=== PATIENT | female | born 1995 ===

== ENCOUNTER 2018-11-10 10:28 | Emergency (ER) | payer BC, OTHER ==
[~2018-11-10] VITALS: Ht 160 cm; Wt 81.6 kg
[~2018-11-10 10:28] MED LIST: ACHD5005 PO; CYCL10TA9 PO
--- NOTE | 2018-11-10 11:49 | ED Abdominal Pain ---
General Chief Complaint: -Female Stated Complaint: VAGINAL BLEEDING;CLOTS; Nursing Triage Note: PT REPORTS VAGINAL BLEEDING WITH CLOT THAT STARTED THIS AM. PT REPORTS BLEEDING IS ONLY PRESENT WHEN SHE WIPES AFTER URINATION. CLINIC ADVISED SHE COME TO THE ER TO GET CHECKED OUT. PT IS UNSURE HOW FAR ALONG SHE IS, APPOINTMENT IS NEXT WEEK. Sepsis Screen: No Definite Risk Source of Information: Patient Exam Limitations: No Limitations History of Present Illness Date Seen by Provider: Nov 10, 2018 Time Seen by Provider: 11:47 Initial Comments To ER with reports of vaginal bleeding. She noticed a small amount of vaginal bleeding when wiping this morning. She is but unsure how far along. She states that she has an appointment with Dr. MEYERS tomorrow. This is her first . She denies any abdominal cramping or pain. She has a [place] blood type card with her showing her to be O+. Timing/Duration: 12-24 Hours Radiation: No Radiation Activities at Onset: None Associated Symptoms: Denies Symptoms Allergies and Home Medications Allergies Coded Allergies: No Known Drug Allergies (Unverified , 08/15/16) Home Medications Cyclobenzaprine HCl 10 Mg Tablet, 10 MG PO Q8H PRN for PAIN Prescribed by: YOLANDE LEDEZMA on 08/15/161819 Hydrocodone Bit/Acetaminophen 1 Each Tablet, 1 EACH PO Q4H PRN for PAIN Prescribed by: YOLANDE LEDEZMA on 08/15/161819 Patient Home Medication List Home Medication List Reviewed: Yes Review of Systems Review of Systems Constitutional: see HPI EENTM: No Symptoms Reported Respiratory: No Symptoms Reported Cardiovascular: No Symptoms Reported Gastrointestinal: See HPI; Denies Abdominal Pain Genitourinary: No Symptoms Reported Musculoskeletal: no symptoms reported Skin: no symptoms reported Psychiatric/Neurological: No Symptoms Reported Endocrine: No Symptoms Reported Hematologic/Lymphatic: No Symptoms Reported Past Scjuelw-Tbmvec-Kjaigj Hx Patient Social History Alcohol Use: Denies Use Recreational Drug Use: No Smoking Status: Never a Smoker Recent Foreign Travel: No Contact w/Someone Who Travel: No Recent Infectious Disease Expo: No Recent Hopitalizations: No Seasonal Allergies Seasonal Allergies: No Past Medical History Surgeries: No Respiratory: No Cardiac: No Neurological: No Reproductive Disorders: No Sexually Transmitted Disease: No Genitourinary: No Gastrointestinal: No Musculoskeletal: No Endocrine: No HEENT: No Cancer: No Psychosocial: No Integumentary: No Blood Disorders: No Family Medical History No Pertinent Family Hx Physical Exam Vital Signs Vital Signs - First Documented 11/10/18 10:48 Temp 96.0 Pulse 82 Resp 14 B/P (MAP) 125/74 (91) Pulse Ox 98 Capillary Refill : Less Than 3 Seconds Height/Weight/BMI Height: 5'3.00" Weight: 180lbs. oz. 81.401066rc; 25.06 BMI Method:Stated General Appearance: WD/WN, no apparent distress HEENT: PERRL/EOMI, normal ENT inspection Neck: non-tender, full range of motion Respiratory: no respiratory distress, no accessory muscle use Gastrointestinal: normal bowel sounds, non tender, soft Extremities: normal range of motion, non-tender Neurologic/Psychiatric: alert, normal mood/affect, oriented x 3 Skin: normal color, warm/dry Progress/Results/Core Measures Results/Orders Lab Results Laboratory Tests Test 11/10/18 11:50 Range/Units White Blood Count 10.7 4.3-11.0 10^3/uL Red Blood Count 4.76 4.35-5.85 10^6/uL Hemoglobin 14.6 11.5-16.0 G/DL Hematocrit 42 35-52 % Mean Corpuscular Volume 87 80-99 FL Mean Corpuscular Hemoglobin 31 25-34 PG Mean Corpuscular Hemoglobin Concent 35 32-36 G/DL Red Cell Distribution Width 12.7 10.0-14.5 % Platelet Count 305 130-400 10^3/uL Mean Platelet Volume 8.9 7.4-10.4 FL Neutrophils (%) (Auto) 72 42-75 % Lymphocytes (%) (Auto) 18 12-44 % Monocytes (%) (Auto) 10 0-12 % Eosinophils (%) (Auto) 1 0-10 % Basophils (%) (Auto) 0 0-10 % Neutrophils # (Auto) 7.6 1.8-7.8 X 10^3 Lymphocytes # (Auto) 1.9 1.0-4.0 X 10^3 Monocytes # (Auto) 1.0 0.0-1.0 X 10^3 Eosinophils # (Auto) 0.1 0.0-0.3 10^3/uL Basophils # (Auto) 0.0 0.0-0.1 10^3/uL Sodium Level 139 135-145 MMOL/L Potassium Level 3.9 3.6-5.0 MMOL/L Chloride Level 106 98-107 MMOL/L Carbon Dioxide Level 23 21-32 MMOL/L Anion Gap 10 5-14 MMOL/L Blood Urea Nitrogen 7 7-18 MG/DL Creatinine 0.71 0.60-1.30 MG/DL Estimat Glomerular Filtration Rate > 60 BUN/Creatinine Ratio 10 Glucose Level 84 70-105 MG/DL Calcium Level 9.5 8.5-10.1 MG/DL Corrected Calcium 9.2 8.5-10.1 MG/DL Total Bilirubin 0.5 0.1-1.0 MG/DL Aspartate Amino Transf (AST/SGOT) 19 5-34 U/L Alanine Aminotransferase (ALT/SGPT) 43 0-55 U/L Alkaline Phosphatase 64 40-136 U/L Total Protein 7.7 6.4-8.2 GM/DL Albumin 4.4 3.2-4.5 GM/DL My Orders Orders - KEVIN JOEL APRN Hcg,Quantitative (11/10/18 10:56) Cbc With Automated Diff (11/10/18 10:56) Abo Rh Type (11/10/18 10:56) Comprehensive Metabolic Panel (11/10/18 10:56) Us Ob<14 Wks Sngle W/Transvag (11/10/18 10:56) Vital Signs/I&O 11/10/18 10:48 Temp 96.0 Pulse 82 Resp 14 B/P (MAP) 125/74 (91) Pulse Ox 98 Blood Pressure Mean: 91 Departure Communication (Admissions) Ultrasound shows intrauterine 7 weeks 2 days heart rate 132, no evidence of subchorionic hemorrhage or other abnormality. Impression Primary Impression: Vaginal bleeding affecting early Additional Impression: Subchorionic hematoma in first trimester Qualified Codes: O41.8X10 - Other specified disorders of amniotic fluid and membranes, first trimester, not applicable or unspecified; O46.8X1 - Other antepartum hemorrhage, first trimester Disposition: 01 HOME, SELF-CARE Condition: Stable Departure-Patient Inst. Decision time for Depature: 11:48 Referrals: SAHRA MEYERS,LOCAL PHYSICIAN (PCP) Primary Care Physician Patient Instructions: Bleeding With Add. Discharge Instructions: 1. Follow-up with Dr. FENECH tomorrow 2. Return to ER for any concerns 3. Subchorionic hemorrhage All discharge instructions reviewed with patient and/ or family. Voiced understanding. Copy Copies To 1: SAHRA MEYERS PETER J APRN Nov 10, 2018 11:49
[2018-11-10 11:59] LABS: BASOPHILS % (AUTO) 0 % (0-10); EOSINOPHILS # (AUTO) 0.1 10^3/uL (0.0-0.3); EOSINOPHILS % (AUTO) 1 % (0-10); HEMATOCRIT 42 % (35-52); HEMOGLOBIN 14.6 G/DL (11.5-16.0); LYMPHOCYTES # (AUTO) 1.9 X 10^3 (1.0-4.0); LYMPHOCYTES % (AUTO) 18 % (12-44); MEAN CORPUSCULAR HEMOGLOBIN 31 PG (25-34); MEAN CORPUSCULAR HGB CONC 35 G/DL (32-36); MEAN CORPUSCULAR VOLUME 87 FL (80-99); MEAN PLATELET VOLUME 8.9 FL (7.4-10.4); MONOCYTES % (AUTO) 10 % (0-12); NEUTROPHILS # (AUTO) 7.6 X 10^3 (1.8-7.8); NEUTROPHILS % (AUTO) 72 % (42-75); PLATELET COUNT 305 10^3/uL (130-400); RED CELL DISTRIBUTION WIDTH 12.7 % (10.0-14.5); WHITE BLOOD COUNT 10.7 10^3/uL (4.3-11.0)
--- NOTE | 2018-11-10 12:13 | Diagnostic Imaging Report ---
Indication: Vaginal bleeding. There is an intrauterine gestational sac containing a pole. [place]-rump length measurement approximately 12 mm consistent with 7 weeks 3 days gestation. heart rate was recorded at 132 beats per minute. Gestational sac shape is within normal limits. There does appear to be a small subchorionic hemorrhage measuring 15 mm x 7 mm. Adnexa evaluation shows no evidence of mass or free fluid. Ovaries cannot be visualized due to bowel gas. Impression: Single IUP approximately 7 weeks 3 days gestational age with an estimated date of confinement sonographically of 06/26/2019. There is a small subchorionic bleed present. No other abnormalities detected. Dictated by: Dictated on workstation # [id number]
[2018-11-10 12:19] LABS: ALANINE AMINOTRANSFERASE 43 U/L (0-55); ALBUMIN 4.4 GM/DL (3.2-4.5); ALKALINE PHOSPHATASE 64 U/L (40-136); BILIRUBIN,TOTAL 0.5 MG/DL (0.1-1.0); BUN/CREATININE RATIO 10; CALCIUM 9.5 MG/DL (8.5-10.1); CARBON DIOXIDE 23 MMOL/L (21-32); CHLORIDE 106 MMOL/L (98-107); CREATININE SERUM 0.71 MG/DL (0.60-1.30); GFR ESTIMATED > 60; GLUCOSE 84 MG/DL (70-105); POTASSIUM 3.9 MMOL/L (3.6-5.0); SODIUM 139 MMOL/L (135-145); TOTAL PROTEIN 7.7 GM/DL (6.4-8.2)
[2018-11-10 12:32] VITALS: BP 125/74
== END 2018-11-10 12:45 | disposition home or self-care (01) ==
LOC: EDUNIT# 10:28 → ER 10:29
DX: O20.9 Hemorrhage in early pregnancy, unspecified (principal); O41.8X10 Other specified disorders of amniotic fluid and membranes, first trimester, not applicable or unspecified; Z3A.01 Less than 8 weeks gestation of pregnancy
CPT/HCPCS: 36415; 76801; 76817; 80053; 84702; 85025; 86900; 86901

== ENCOUNTER → 2019-02-12 | Outpatient (CLI) | payer BC ==
--- NOTE | 2019-02-12 12:15 | Diagnostic Imaging Report ---
INDICATION: survey. TECHNIQUE: Multiple real-time grayscale images were obtained over the gravid uterus. COMPARISON: 11/10/2018. FINDINGS: There is a single live fetus in a cephalic presentation. heart rate was recorded at 135 beats per minute. Placenta is anterior. Amniotic fluid volume is normal. Cervical length is 4.3 cm. kidneys, bladder and stomach are unremarkable. The brain is unremarkable. There is a four-chamber heart. There is a three-vessel cord with normal insertion. The spine is unremarkable. Biometrical measurements are as follows: Biparietal 5.32 cm, age 22 weeks 2 days. Head circumference 18.17 cm, age 20 weeks 5 days. Abdominal circumference 16.64 cm, age 21 weeks 5 days. Femur length 3.51 cm, age 21 weeks 1 days. Sonographic estimate age: 21 weeks 4 days. Sonographic estimated date of delivery: 06/21/2019. Estimated Weight: 418 gm (+/- 61 gm). LMP percentile: 72%. heart rate: 135 beats per minute. number: 1 of 1. IMPRESSION: Single live IUP 21 weeks 4 days gestational age showing normal interval growth when compared to prior examination. No complicating features are seen. Dictated by: Dictated on workstation # [id number]
== END ==
LOC: RAD 10:49
PROVIDERS: ATTEND Obstetrics & Gynecology
DX: Z36.89 Encounter for other specified antenatal screening (principal); Z3A.21 21 weeks gestation of pregnancy
CPT/HCPCS: 76805

== ENCOUNTER 2019-06-27 13:26 | Outpatient (CLI) | payer BC ==
[~2019-06-27] VITALS: Ht 160 cm; Wt 91.5 kg
--- NOTE | 2019-06-27 13:24 | NUR ---
CINDY MORA presented to unit via ambulation from home, accompanied by S.O., with c/o LEAKING FLUID. CINDY MORA weighed, gowned, voided, and to bed. EFHM and TOCO applied, VS taken. CINDY MORA oriented to bed controls, call light, TV, heat, and A/C controls.
[~2019-06-27 13:26] MED LIST changes: +PREN-102 PO
[2019-06-27 14:03] LABS: BILIRUBIN,URINE NEGATIVE (NEGATIVE); CLARITY,URINE CLEAR; COLOR,URINE YELLOW; GLUCOSE, URINE (UA) NEGATIVE (NEGATIVE); KETONES,URINE 1+ (NEGATIVE); LEUKOCYTE ESTERASE ,URINE 3+ (NEGATIVE); NITRITE,URINE NEGATIVE (NEGATIVE); PH,URINE 7 (5-9); PROTEIN,URINE 2+ (NEGATIVE); UROBILINOGEN,URINE 4 MG/DL (NORMAL)
[2019-06-27 14:15] LABS: BACTERIA,URINE MODERATE /HPF
--- NOTE | 2019-06-27 14:22 | NUR ---
Dr. Waldron called and notified of pt arrival, c/o gush of fluid on toilet at home, occasional cramping. Notified pt is G1, due 06/26 (40.1weeks). Negative nitrazine, SVE, FHR, ctx pattern, UA, VS reported to Dr. Waldron. Orders to call in Keflex 500mg QID x 7 Days and D/C pt to home.
[2019-06-27] MEDS ORDERED: CEPH-507 PO (14:28)
--- NOTE | 2019-06-27 14:30 | NUR ---
Keflex 500mg BID x7 days called to [facility]
--- NOTE | 2019-06-27 14:40 | NUR ---
Discharge instructions explained to pt with copy provided to pt. Pt notified of script at [facility]. Pt verbalizes understanding of instructions, denies questions or concerns at this time. Pt ambulates off unit accompanied by S.O. to private vehicle with all personal belongings. No s/s of distress noted.
--- NOTE | 2019-06-29 08:22 | Physician Query-Final Dx ---
TOMMY HALL 06/29/19 0822: Clinic Account Progress/Dx Physician Query: Please give diagnosis Please include # weeks gestation Date of Service Jun 27, 2019 at 13:26 SAHRA MEYERS DO 06/30/19 0808: Clinic Account Progress/Dx DIAGNOSIS: Diagnosis 40 week IUP Vaginal discharge UTI TOMMY HALL Jun 29, 2019 08:22 SAHRA MEYERS DO Jun 30, 2019 08:08
== END 2019-06-27 14:40 | disposition home or self-care (01) ==
LOC: LDRP 13:26 → WSo 13:26
PROVIDERS: ATTEND Obstetrics & Gynecology
DX: O42.90 Premature rupture of membranes, unspecified as to length of time between rupture and onset of labor, unspecified weeks of gestation (principal); O26.899 Other specified pregnancy related conditions, unspecified trimester; Z3A.00 Weeks of gestation of pregnancy not specified
CPT/HCPCS: 81000; 87088; 99214

== ENCOUNTER 2019-07-01 19:11 | Inpatient (IN) | payer BC ==
[~2019-07-01] VITALS: Ht 160 cm; Wt 90.5 kg
--- NOTE | 2019-07-01 19:04 | NUR ---
CINDY MORA , [facility] accompanied by SO, with c/o INDUCTION. CINDY MORA weighed, gowned, voided, and to bed. EFHM and TOCO applied, VS taken. CINDY MORA oriented to bed controls, call light, TV, heat, and A/C controls. Pt denies bleeding or leaking of fluids. Confirms movement. Induction plan reviewed.
[~2019-07-01 19:11] MED LIST changes: +CEPH-507 PO
[2019-07-01 19:30] VITALS: BP 112/71
[2019-07-01] MEDS ORDERED: MINERAL OIL CONCENTRATE 99.9% 15 ML UDC TOP PRN (20:15)
[2019-07-01] MEDS: D5 LR IV SOLUTION 1,000 ML IV SCH (20:23)
[2019-07-01 20:30] VITALS: BP 104/71
[2019-07-01] MEDS ORDERED: MISOPROSTOL 100 MCG (CYTOTEC) TAB ONE (20:32)
[2019-07-01] MEDS: MISOPROSTOL 100 MCG (CYTOTEC) TAB PO SCH (20:32)
[2019-07-01 20:34] LABS: BASOPHILS % (AUTO) 0 % (0-10); EOSINOPHILS # (AUTO) 0.1 10^3/uL (0.0-0.3); EOSINOPHILS % (AUTO) 1 % (0-10); HEMATOCRIT 38 % (35-52); HEMOGLOBIN 12.6 G/DL (11.5-16.0); LYMPHOCYTES # (AUTO) 1.8 X 10^3 (1.0-4.0); LYMPHOCYTES % (AUTO) 19 % (12-44); MEAN CORPUSCULAR HEMOGLOBIN 28 PG (25-34); MEAN CORPUSCULAR HGB CONC 33 G/DL (32-36); MEAN CORPUSCULAR VOLUME 85 FL (80-99); MEAN PLATELET VOLUME 9.6 FL (7.4-10.4); MONOCYTES # (AUTO) 0.8 X 10^3 (0.0-1.0); MONOCYTES % (AUTO) 8 % (0-12); NEUTROPHILS % (AUTO) 73 % (42-75); PLATELET COUNT 301 10^3/uL (130-400); RED CELL DISTRIBUTION WIDTH 14.7 % (10.0-14.5); WHITE BLOOD COUNT 9.7 10^3/uL (4.3-11.0)
[2019-07-01 21:30] VITALS: BP 113/70
--- NOTE | 2019-07-01 21:48 | History & Physical-OB ---
OB - Chief Complaint & HPI Date/Time Date of Admission: Date of Admission: Jul 01, 2019 at 19:11 Date seen by a Provider: Jul 01, 2019 Time Seen by a Provider: 21:00 Chief Complaint/History OB-Reason for Admission/Chief: Induction of Labor Hx : 1 Hx Para: 0 Expected Date of Delivery: Jun 26, 2019 Gestational Age in Weeks: 40 Gestational Age in Days: 4 Indication for induction: post dates Admission Nurse Assessment Rev: Yes Allergies and Home Medications Allergies Coded Allergies: No Known Drug Allergies (Unverified , 08/15/16) Home Medications Cephalexin 500 Mg Capsule, 500 MG PO QID Prescribed by: SARATH ADKINS on 06/27/19 1428 Vits #93/Iron Fum/FA 1 Each Tablet, 1 EACH PO DAILY, (Reported) Patient Home Medication List Home Medication List Reviewed: Yes OB - History Hx of Present Care: Yes Ultrasounds: Normal mid trimester US Obstetrical Complications: None Medical Complications: None Delivery History Hx Blood Disorders: No Patient Past Medical History n/a Social History/Family History Sexually Transmitted Disease: No OB - Admission Exam Physical Exam HEENT: NCAT Heart: Rhythm Normal Lungs: Clear Abdomen: Gravid Extremities: Normal Reflexes: Normal Cervical Dilatation: 2cm Effacement: 75% Station: -1 Membranes: Intact Heart Rate: 130's Accelerations: Accelerations Present Decelerations: No Decelerations Short Term Variability: Present Care Home Variability: Average (6-25) Contractions on Admission: 6-10 Minutes Apart Glover Scoring Tool (Modified) Dilation (cm): 1-2cm (1) Effacement (%): 51-79% (2) Descent/Station: -1,0 (2) Cervix Consistency: Soft (2) Cervix Position: Anterior (2) Subtract 1 point for: Nulliparity (-1) Glover Score: 8 Labs Laboratory Tests Test 07/01/19 20:15 Range/Units White Blood Count 9.7 4.3-11.0 10^3/uL Red Blood Count 4.48 4.35-5.85 10^6/uL Hemoglobin 12.6 11.5-16.0 G/DL Hematocrit 38 35-52 % Mean Corpuscular Volume 85 80-99 FL Mean Corpuscular Hemoglobin 28 25-34 PG Mean Corpuscular Hemoglobin Concent 33 32-36 G/DL Red Cell Distribution Width 14.7 H 10.0-14.5 % Platelet Count 301 130-400 10^3/uL Mean Platelet Volume 9.6 7.4-10.4 FL Neutrophils (%) (Auto) 73 42-75 % Lymphocytes (%) (Auto) 19 12-44 % Monocytes (%) (Auto) 8 0-12 % Eosinophils (%) (Auto) 1 0-10 % Basophils (%) (Auto) 0 0-10 % Neutrophils # (Auto) 7.0 1.8-7.8 X 10^3 Lymphocytes # (Auto) 1.8 1.0-4.0 X 10^3 Monocytes # (Auto) 0.8 0.0-1.0 X 10^3 Eosinophils # (Auto) 0.1 0.0-0.3 10^3/uL Basophils # (Auto) 0.0 0.0-0.1 10^3/uL OB - Assessment/Plan/Diagnosis Assessment Assessment: induction of labor Admission Dx 23yo @ 40.4 Postdates induction of labor GBS neg Admission Status: Inpatient Order (span 2 midnights) Reason for Inpatient Admission: induction of labor at term Plan Plan: Induction Induction Method: per Misoprostol Protocol SAHRA MEYERS DO Jul 01, 2019 21:48
[2019-07-01] MEDS ORDERED: CATHETER FLUSH 10 ML SYR IV SCH (22:00)
[2019-07-01 22:30] VITALS: BP 109/76
[2019-07-02] VITALS (64 sets, daily range): BP systolic 87–130; BP diastolic 52–81
[2019-07-02] MEDS: MISOPROSTOL 100 MCG (CYTOTEC) TAB PO SCH (00:25)
[2019-07-02] MEDS: D5 LR IV SOLUTION 1,000 ML IV SCH ×2 (02:51→10:47)
--- NOTE | 2019-07-02 05:50 | NUR ---
Dr. Waldron called and given update on pt status at this time. orders cytotec to be started now.
[2019-07-02] MEDS ORDERED: OXYTOCIN/NORMAL SALINE 500 ML IV SCH ×2 (05:58→20:15)
[2019-07-02] MEDS ORDERED: OXYTOCIN/NORMAL SALINE 500 ML IV ONE (06:02)
[2019-07-02] MEDS ORDERED: SUFENTA 0.6MCG/ML BUPIVA 0.125 100 ML ONE (07:57)
--- NOTE | 2019-07-02 07:58 | NUR ---
Anesthesia called and notified of epidural request.
[2019-07-02] MEDS ORDERED: BUPIVACAINE 0.25% 30 ML (SENSORCAINE) VIAL ONE ×2 (08:37→19:12)
[2019-07-02] MEDS ORDERED: fentaNYL INJECTION 100 MCG/2 ML AMP ONE ×2 (08:38→18:02)
[2019-07-02] MEDS: EPIDURAL (SUFENTA 0.6MCG/ML BUPIVA 0.125%) 100 ML BAG EPI PRN ×2 (09:08→17:14)
[2019-07-02] MEDS ORDERED: ONDANSETRON 4 MG/2 ML (SDV) Z0FRAN ONE ×2 (14:05→19:12)
[2019-07-02] MEDS ORDERED: LACTATED RINGERS 1,000 ML IV ONE ×2 (14:06)
[2019-07-02] MEDS ORDERED: NALOXONE 0.4 MG/ML 1 ML (NARCAN) VIAL IV PRN (14:15)
[2019-07-02] MEDS ORDERED: ONDANSETRON 4 MG/2 ML (SDV) Z0FRAN IV PRN (14:15)
[2019-07-02] MEDS ORDERED: LIDOCAINE/EPI 2% 1:200,00 (XYLOCAINE) 10 ML VIAL ONE (16:02)
[2019-07-02] MEDS ORDERED: FAMOTIDINE 20MG/2ML IV (PEPCID) ONE (17:55)
[2019-07-02] MEDS ORDERED: ceFAZolin 2 GM/50 ML NS 50 ML ONE (17:57)
[2019-07-02] MEDS ORDERED: CITRIC ACID/SOB CIT (BICITRA) 30 ML UDC ONE (17:57)
[2019-07-02] MEDS ORDERED: METOCLOPRAMIDE INJ 10 MG/2 ML (REGLAN) ONE (17:57)
[2019-07-02] MEDS ORDERED: LIDOCAINE PF 2% 5 ML (XYLOCAINE) VIAL ONE ×3 (18:02→18:39)
[2019-07-02] MEDS ORDERED: BUPIVACAINE 0.5% 30 ML (SENSORCAINE) VIAL ONE (19:13)
[2019-07-02] MEDS ORDERED: METOCLOPRAMIDE INJ 10 MG/2 ML (REGLAN) IV ONE (19:45)
[2019-07-02] MEDS ORDERED: CITRIC ACID/SOB CIT (BICITRA) 30 ML UDC PO ONE (19:45)
[2019-07-02] MEDS ORDERED: CATHETER FLUSH 10 ML SYR IV PRN (19:45)
[2019-07-02] MEDS ORDERED: FAMOTIDINE 20MG/2ML IV (PEPCID) IV ONE (19:45)
[2019-07-02] MEDS ORDERED: TETANUS,DIPTH,PERTUSS P/F (BOOSTRIX) 0.5 ML VIAL IM SCH (20:15)
[2019-07-02] MEDS ORDERED: MEASLES,MUMPS,RUBELLA 1 EA INJ SC SCH (20:15)
[2019-07-02] MEDS ORDERED: ONDANSETRON 4 MG/2 ML (SDV) Z0FRAN IVP PRN (20:15)
[2019-07-02] MEDS: DOCUSATE SODIUM 100 MG (COLACE) CAP PO SCH (20:40)
[2019-07-02] MEDS: KETOROLAC 30 MG/ML VIAL IV SCH (20:40)
--- NOTE | 2019-07-02 21:15 | NUR ---
Report given to Tennille Ward RN
[2019-07-02] MEDS ORDERED: CATHETER FLUSH 10 ML SYR IV SCH (22:00)
[2019-07-03] MEDS: HYDROcodone/APAP 5 MG/325 MG (LORTAB) TAB PO PRN ×4 (00:25→22:39)
[2019-07-03 00:28] VITALS: BP 86/53
--- NOTE | 2019-07-03 01:30 | OPERATIVE REPORT ---
DATE OF SERVICE: PREOPERATIVE DIAGNOSES: 1. A 23-year-old G1, P0 at 40 weeks and 6 days gestation. 2. Cephalopelvic disproportion. 3. intolerance and second stage of labor. POSTOPERATIVE DIAGNOSES: 1. A 23-year-old G1, P0 at 40 weeks and 6 days gestation. 2. Cephalopelvic disproportion. 3. intolerance and second stage of labor. 4. Persistent occiput posterior. SURGEON: Lino Waldron D.O. ANESTHESIA: Epidural, which was bolused. ESTIMATED BLOOD LOSS: 500 mL. URINE OUTPUT: 50 mL clear and concentrated at the end of procedure. FLUIDS: 1000 mL lactated Ringer solution. FINDINGS: A live male weighing 8 pounds 13 ounces, Apgars of 8 and 9. Grossly normal appearing uterus, bilateral fallopian tubes and ovaries. SPECIMEN SENT: None. INDICATIONS FOR PROCEDURE: This 23-year-old female, who is brought in for induction yesterday evening for cervical ripening. She was found to be 2 cm on admission the following morning, which was this morning. Artificial rupture of membranes was performed and Pitocin augmentation was started to achieve an adequate contraction pattern, which was done so, up to a max dose of 12 milliunits of Pitocin. An epidural was obtained for analgesia, which worked very well. She progressed to complete and 0 station; however, occiput posterior was identified on examination, suspicion for cephalopelvic disproportion was high due to some vulvar swelling. The patient was allowed to labor down for over an hour after a 30 minute trial pushing progressed the infant a little to none. Following the trail to labor down, repeat attempt was made with pushing and there were heart rate decelerations into the 60s and 70s with each maternal push. At that point, I discussed with the patient my concern with risk to the with persistent pushing and an extended second stage labor and the long-term problems include potentially cause for the infant. I discussed with the patient, proceed with primary . Risks of procedure were discussed with the patient in detail. After all of her questions were answered, consent was obtained in the preoperative area and the patient was taken to the operating room. OPERATIVE REPORT IN DETAIL: Once in the operating room, epidural analgesia was bolused and found to be adequate, placed in the supine position with leftward tilt, prepped and draped in normal sterile fashion. A timeout was performed and anesthesia was tested. I then proceeded with making a Pfannenstiel skin incision with a knife and carried down to underlying fascia using Bovie cautery. Fascial incision was extended laterally using Bovie cautery. Superior aspect of the fascial incision was then grasped with Erickson clamps, tented up and dissected off the underlying rectus muscles. The inferior aspect of the fascial incision was then grasped with Erickson clamps, tented up and dissected off the underlying rectus muscles. Rectus muscles were then dissected down the midline using Spaulding scissors, exposing the peritoneum, which I entered bluntly and extended using blunt traction. Lloyd ring retractor was placed in the peritoneal incision, which offers excellent lateral sidewall retraction. I made a low transverse incision to the vesicouterine peritoneum and bluntly dissected off the lower uterine segment, creating a bladder flap. I then proceeded with myotomy until membranes were visualized, which fornix extended the uterine incision laterally and superiorly using bandage scissors. The was found in vertex presentation, right occiput posterior. With gentle elevation of the head, the 's head was elevated up to the incision where gentle fundal pressure, the head was delivered through the incision where the nares and oropharynx were bulb suctioned. Anterior and posterior shoulders were delivered. was then brought to the operative field. Cord was doubly clamped and cut. Infant was handed off to waiting nurses in attendance. Cord blood was collected, 3-vessel cord with intact placenta is delivered spontaneously thereafter. IV Pitocin was initiated to facilitate uterine contraction. Uterine fundus confirmed by manual massage. Uterus was then exteriorized and cleared of all endometrial clots and debris. I then proceeded with closing the uterine incision using 0 Vicryl suture in running locked fashion. Second layer of imbricating 0 Monocryl was placed. Excellent hemostasis was noted after doing this. I then placed the uterus back in the pelvis and copiously irrigated the pelvis using normal saline. Once again, there was no active bleeding noted from any of my dissection planes. I placed Interceed antiadhesive over my low transverse incision and proceeded with closing the peritoneum after removing the Lloyd ring retractor. The peritoneum was reapproximated using 3-0 Vicryl suture in a running fashion. The rectus muscle was reapproximated using 3-0 Vicryl suture in interrupted fashion. The fascia was reapproximated using 0 Vicryl suture in running fashion. Subcutaneous tissue was reapproximated using 3-0 plain interrupted subcutaneous stitch and skin reapproximated using 4-0 Monocryl in a running subcuticular. Dermabond was applied to incision and sterile dressing with adhesive white tape. The patient tolerated the procedure well and sent to recovery area in stable condition. Lap and sponge counts were correct at the end of the procedure. Instrument count was correct as well. Two grams of Ancef given preoperatively for infection prophylaxis. Job ID: [id number] DocumentID: [id number] Dictated Date: 07/02/2019 20:21:53 Cloth Stock Sorter Date: 07/03/2019 01:30:10 Dictated By: DO SHARA GARCIA
[2019-07-03] MEDS: KETOROLAC 30 MG/ML VIAL IV SCH ×2 (03:33→09:16)
[2019-07-03 03:34] VITALS: BP 85/47
--- NOTE | 2019-07-03 03:40 | NUR ---
Pt ambulatory up to bathroom per rn standby assist for first void postop. 500ML light janel urine noted in hat, pericare pads changed per rn assist, pt back to bed standby. Scds applied bilat lower extremity, blankets adjusted, pt denies further needs. see emar and vs int.
[2019-07-03 06:32] LABS: BASOPHILS % (AUTO) 0 % (0-10); EOSINOPHILS # (AUTO) 0.1 10^3/uL (0.0-0.3); EOSINOPHILS % (AUTO) 0 % (0-10); HEMATOCRIT 29 % (35-52); HEMOGLOBIN 9.6 G/DL (11.5-16.0); LYMPHOCYTES # (AUTO) 1.5 X 10^3 (1.0-4.0); LYMPHOCYTES % (AUTO) 9 % (12-44); MEAN CORPUSCULAR HEMOGLOBIN 28 PG (25-34); MEAN CORPUSCULAR HGB CONC 33 G/DL (32-36); MEAN CORPUSCULAR VOLUME 86 FL (80-99); MEAN PLATELET VOLUME 9.5 FL (7.4-10.4); MONOCYTES # (AUTO) 1.4 X 10^3 (0.0-1.0); MONOCYTES % (AUTO) 8 % (0-12); NEUTROPHILS # (AUTO) 13.9 X 10^3 (1.8-7.8); NEUTROPHILS % (AUTO) 82 % (42-75); PLATELET COUNT 245 10^3/uL (130-400); RED CELL DISTRIBUTION WIDTH 14.9 % (10.0-14.5); WHITE BLOOD COUNT 16.9 10^3/uL (4.3-11.0)
--- NOTE | 2019-07-03 08:51 | Anesthesia-Regional Post-Op ---
Regional Patient Condition Mental Status: Alert, Oriented x3 Circulation: Same as Pre-Op Headache: Absent Sensation: Full Recovery Motor Block: Absent Post Op Complications Complications None Follow Up Care/Instructions Patient Instructions None needed. Anesthesia/Patient Condition Patient is doing well, no complaints, stable vital signs, no apparent adverse anesthesia problems. No complications reported per nursing. JANET TIERNEY CRNA Jul 03, 2019 08:51
[2019-07-03 09:00] VITALS: BP 95/57
--- NOTE | 2019-07-03 09:00 | NUR ---
A.M. ASSESSMENT COMPLETED. VSS. CARING FOR IN ROOM. GOOD INTERACTION NOTED.
[2019-07-03] MEDS: DOCUSATE SODIUM 100 MG (COLACE) CAP PO SCH ×2 (09:18→21:57)
--- NOTE | 2019-07-03 09:19 | NUR ---
LORTAB 5/325 2 TABS P.O. FOR C/O INCISIONAL PAIN.
--- NOTE | 2019-07-03 09:20 | NUR ---
DR. MEYERS IN TO SEE PT.
--- NOTE | 2019-07-03 09:38 | Postpartum Progress Note ---
Note Note Day # 1 Subjective: Patient is without complaints. Ambulating, voiding. Tolerating a regular diet without nausea or vomiting. Normal lochia. Pain is well controlled with oral pain medications. Objective: Physical Exam: General - Alert and oriented, no apparent distress Abdomen - Soft, appropriately tender to palpation, non-distended, fundus firm at umbilicus Extremities - no edema, negative Corey's bilaterally Incision: c/d/iu Assessment: POD 1 PLTCS Acute blood loss anemia Plan: Routine care. Encourage breast feeding. Encourage ambulation. Ferrous sulfate supplementation. Plan for discharge tomorrow Vitals - Labs Vital Signs - I&O Vital Signs Date Time Temp Pulse Resp B/P (MAP) Pulse Ox O2 Delivery O2 Flow Rate FiO2 07/03/19 03:34 36.7 77 18 85/47 (60) 98 Room Air 07/03/19 00:28 36.2 85 18 86/53 (64) 98 Room Air 07/02/19 20:40 36.8 79 18 124/78 (93) 99 Room Air 07/02/19 20:10 Room Air 07/02/19 20:10 36.7 20 115/74 (88) 100 Room Air 07/02/19 19:50 37.3 16 118/77 (91) 98 Room Air 07/02/19 19:50 Room Air 07/02/19 19:34 37.1 17 122/77 (92) 99 Room Air 07/02/19 19:34 Room Air 07/02/19 19:15 16 95/79 (84) 99 Room Air 07/02/19 19:15 Room Air 07/02/19 18:09 100 130/66 (87) Non Rebreather 07/02/19 17:55 88 120/67 (84) Non Rebreather 07/02/19 17:40 82 122/63 (82) Non Rebreather 07/02/19 17:25 66 113/78 (90) Room Air 07/02/19 17:10 65 113/74 (87) Room Air 07/02/19 17:00 68 115/76 (89) Room Air 07/02/19 16:45 63 111/71 (84) Room Air 07/02/19 16:30 65 117/58 (77) Room Air 07/02/19 16:08 36.5 20 07/02/19 15:55 74 94/59 (71) Room Air 07/02/19 15:40 58 120/74 (89) Room Air 07/02/19 15:25 68 117/74 (88) Room Air 07/02/19 15:10 55 96/60 (72) Room Air 07/02/19 14:55 63 104/62 (76) Room Air 07/02/19 14:40 63 104/62 (76) Room Air 07/02/19 14:25 36.4 83 16 105/76 (86) Room Air 07/02/19 14:10 78 116/81 (93) Room Air 07/02/19 13:55 81 109/75 (86) Room Air 07/02/19 13:40 77 101/68 (79) Room Air 07/02/19 13:25 67 104/69 (81) Room Air 07/02/19 13:10 82 109/73 (85) Room Air 07/02/19 12:55 67 100/58 (72) Room Air 07/02/19 12:40 65 91/56 (68) Room Air 07/02/19 12:25 67 106/66 (79) Room Air 07/02/19 12:10 61 102/61 (75) Room Air 07/02/19 11:55 63 99/67 (78) Room Air 07/02/19 11:40 60 105/69 (81) Room Air 07/02/19 11:25 57 98/66 (77) Room Air 07/02/19 11:10 56 103/61 (75) Room Air 07/02/19 10:55 53 107/65 (79) Room Air 07/02/19 10:40 57 104/66 (79) Room Air 07/02/19 10:25 93 110/62 (78) Room Air 07/02/19 10:05 35.8 62 18 105/57 (73) Room Air 07/02/19 10:02 57 109/71 (84) Room Air 07/02/19 09:57 69 98/60 (73) Room Air 07/02/19 09:51 62 101/65 (77) Room Air 07/02/19 09:41 63 109/71 (84) Room Air I & O 07/03/19 06:59 Intake Total 2350 ml Output Total 1275 ml Balance 1075 ml Labs Laboratory Tests 07/03/19 05:55: White Blood Count 16.9H, Red Blood Count 3.41L, Hemoglobin 9.6#L, Hematocrit 29L , Mean Corpuscular Volume 86, Mean Corpuscular Hemoglobin 28, Mean Corpuscular Hemoglobin Concent 33, Red Cell Distribution Width 14.9H, Platelet Count 245, Mean Platelet Volume 9.5, Neutrophils (%) (Auto) 82H, Lymphocytes (%) (Auto) 9L, Monocytes (%) (Auto) 8, Eosinophils (%) (Auto) 0, Basophils (%) (Auto) 0, Neutrophils # (Auto) 13.9H, Lymphocytes # (Auto) 1.5, Monocytes # (Auto) 1.4H, Eosinophils # (Auto) 0.1, Basophils # (Auto) 0.0 SAHRA MEYERS DO Jul 03, 2019 09:38
[2019-07-03] MEDS ORDERED: IBUP-844 PO (09:40)
[2019-07-03] MEDS ORDERED: ACHD5005 PO (09:40)
[2019-07-03] MEDS ORDERED: DOCU100C37 PO (09:40)
--- NOTE | 2019-07-03 09:41 | Discharge Inst-Women's Service ---
Discharge Inst-Women's Serv Depart Medication/Instructions New, Converted or Re-Newed RX: RX on Chart Final Diagnosis POD 2 PLTCS Acute blood loss anemia Problems Reviewed?: Yes Consults/Follow Up Additional Follow Up: Yes Orders/Referrals Dr. Meyers in 7-10 days and in 6 weeks Activity Activity: Activity as Tolerated Driving Instructions: No Driving for 1 Week NO SMOKING: NO SMOKING Nothing Inside Vagina: No Douching, No Kendall, No Tampons Diet Discharge Diet: No Restrictions Symptoms to Report to : Bleeding Excessive, Pain Increased, Fever Over 101 Degrees F, Vaginal Bleeding Increase, Questions/Concerns SAHRA MEYERS DO Jul 03, 2019 09:41
--- NOTE | 2019-07-03 11:20 | NUR ---
AMBULATING IN THE HALLWAY WITH S.O. MOVING SLOWLY BUT STEADILY.
--- NOTE | 2019-07-03 12:00 | NUR ---
STATES PAIN DECREASED TO 3/10. VISITING WITH FAMILY. CARING FOR INFANT IN ROOM.
--- NOTE | 2019-07-03 12:06 | NUR ---
PT HAS HAD TDAP AND REFUSED THE FLU SHOT.
[2019-07-03 12:30] VITALS: BP 95/54
--- NOTE | 2019-07-03 14:00 | NUR ---
VISITORS AT BEDSIDE. REMAINS IN ROOM.
[2019-07-03] MEDS: IBUPROFEN 600 MG (MOTRIN) TAB PO SCH ×2 (14:57→21:57)
--- NOTE | 2019-07-03 15:04 | NUR ---
LORTAB 2 TABS P.O. FOR C/O ABD PAIN.
--- NOTE | 2019-07-03 17:00 | NUR ---
PT HAS AMBULATED IN THE [facility] SEVERAL TIMES TODAY. LOTS OF VISITORS.
[2019-07-03 18:00] VITALS: BP 103/66
--- NOTE | 2019-07-03 18:00 | NUR ---
VSS. CONTINUES TO CARE FOR IN ROOM.
[2019-07-03] MEDS ORDERED: IBUPROFEN 600 MG (MOTRIN) TAB PO SCH (20:15)
[2019-07-03 21:56] VITALS: BP 98/58
[2019-07-04 03:36] VITALS: BP 96/56
[2019-07-04] MEDS: IBUPROFEN 600 MG (MOTRIN) TAB PO SCH ×2 (03:36→08:04)
--- NOTE | 2019-07-04 07:45 | NUR ---
Dr Waldron to see patient and orders for discharge received.
--- NOTE | 2019-07-04 07:53 | Postpartum Progress Note ---
Note Note Day # 2 Subjective: Patient is without complaints. Ambulating, voiding. Tolerating a regular diet without nausea or vomiting. Normal lochia. Pain is well controlled with oral pain medications. Objective: Physical Exam: General - Alert and oriented, no apparent distress Abdomen - Soft, appropriately tender to palpation, non-distended, fundus firm at umbilicus Extremities - no edema, negative Corey's bilaterally Incision- c/d/i Assessment: POD 2 PLTCS Acute blood loss anemia Plan: Routine care. Encourage breast feeding. Encourage ambulation. Ferrous sulfate supplementation. Plan for discharge today Vitals - Labs Vital Signs - I&O Vital Signs Date Time Temp Pulse Resp B/P (MAP) Pulse Ox O2 Delivery O2 Flow Rate FiO2 07/04/19 03:36 36.3 78 20 96/56 (69) 97 Room Air 07/03/19 21:56 36.7 77 20 98/58 (71) 98 Room Air 07/03/19 18:00 36.4 76 20 103/66 (78) 98 Room Air 07/03/19 12:30 36.7 69 18 95/54 (68) 98 Room Air 07/03/19 09:00 36.9 82 18 95/57 (70) 98 Room Air I & O 07/04/19 07:00 Intake Total 1200 ml Output Total 800 ml Balance 400 ml SAHRA MEYERS DO Jul 04, 2019 07:53
[2019-07-04 08:02] VITALS: BP 96/58
[2019-07-04] MEDS: DOCUSATE SODIUM 100 MG (COLACE) CAP PO SCH (08:03)
[2019-07-04] MEDS: HYDROcodone/APAP 5 MG/325 MG (LORTAB) TAB PO PRN (08:06)
--- NOTE | 2019-07-04 12:40 | NUR ---
Discharge instructions explained, signed and copy to patient. pt verbalized understanding of instructions and denied questions. prescriptions given to pt and discussed with pt medication, frequeny and use. pt verbalized understanding.
--- NOTE | 2019-07-04 13:20 | NUR ---
Discharged to home. Downstairs in wheelchair per staff accompanied by s.o. To private vehicle with belongings in hand.
== END 2019-07-04 13:20 | disposition home or self-care (01) | DRG 787 ==
LOC: LDRP 19:11
PROVIDERS: ADMIT Obstetrics & Gynecology; ATTEND Obstetrics & Gynecology
PROC: 3E0DXGC Introduction of Other Therapeutic Substance into Mouth and Pharynx, External Approach (ICD-10-PCS; 2019-07-02)
PROC: 10D00Z1 Extraction of Products of Conception, Low, Open Approach (ICD-10-PCS; principal; 2019-07-02 18:18)
DX: O48.0 Post-term pregnancy (principal); O33.9 Maternal care for disproportion, unspecified; O64.0XX0 Obstructed labor due to incomplete rotation of fetal head, not applicable or unspecified; O76 Abnormality in fetal heart rate and rhythm complicating labor and delivery; O62.1 Secondary uterine inertia; O90.81 Anemia of the puerperium; D62 Acute posthemorrhagic anemia; Z37.0 Single live birth; Z3A.40 40 weeks gestation of pregnancy
CPT/HCPCS: 36415; 85025; 86850; 86900; 86901; 88307; 94664

== ENCOUNTER → 2021-10-13 | Outpatient (CLI) | payer BC ==
[~2021-10-13] MED LIST changes: +CYCL10TA25 PO; -CYCL10TA9 PO; +DOCU100C37 PO; +IBUP-844 PO
--- NOTE | 2021-10-13 16:01 | Diagnostic Imaging Report ---
INDICATION: survey. TECHNIQUE: Multiple real-time grayscale images were obtained over the gravid uterus. COMPARISON: None. FINDINGS: There is a single live fetus in a cephalic presentation. heart rate was recorded at 143 bpm. Placenta is posterior. No previa is identified. The amniotic fluid volume is normal. Cervical length is 4.4 cm. survey demonstrates kidneys, bladder and stomach to be unremarkable. brain is unremarkable. There is a four chamber heart. There is a three-vessel cord with normal insertion. spine is unremarkable. Biometrical measurements are as follows: Biparietal 4.95 cm, age 21 weeks 0 days. Head circumference 18.54 cm, age 21 weeks 0 days. Abdominal circumference 15.32 cm, age 20 weeks 4 days. Femur length 3.73 cm, age 22 weeks 0 days. Sonographic estimate age: 21 weeks 1 days. Sonographic estimated date of delivery: 02/22/2022. Estimated Weight: 400 gm (+/- 59 gm). LMP percentile: 95%. heart rate: 143 beats per minute. number: 1 of 1. IMPRESSION: Single live IUP 21 weeks 1 day gestational age. Estimated date of confinement sonographically is 02/22/2022. No complicating features are identified. Dictated by: Dictated on workstation # [id number]
== END ==
LOC: RAD 14:00
PROVIDERS: ATTEND Nurse Practitioner Women's Health
DX: Z34.82 Encounter for supervision of other normal pregnancy, second trimester (principal)
CPT/HCPCS: 76805

== ENCOUNTER 2021-12-04 15:34 | Outpatient (CLI) | payer BC ==
[~2021-12-04] VITALS: Ht 162.6 cm; Wt 89.5 kg
[2021-12-04 16:36] VITALS: BP 107/64
[2021-12-04] MEDS ORDERED: NITR-65 PO (19:10)
[2021-12-04] MEDS ORDERED: ONDA4TAB11 PO (19:10)
--- NOTE | 2021-12-05 08:01 | Physician Query-Final Dx ---
ISABEL,12/05/21 0801: Clinic Account Progress/Dx Physician Query: Please give diagnosis Please include # weeks gestation Date of Service Dec 04, 2021 at 15:34 SAHRA MEYERS DO 12/05/21 1620: Clinic Account Progress/Dx DIAGNOSIS: Diagnosis 28 week IUP, Nausea, fevers, chills, vomitting. ISABEL,SepDec 05, 2021 08:01 SAHRA MEYERS DO Dec 05, 2021 16:20
== END 2021-12-04 16:47 | disposition home or self-care (01) ==
LOC: LDRP 15:34 → WSo 15:34
PROVIDERS: ATTEND Obstetrics & Gynecology
DX: O21.9 Vomiting of pregnancy, unspecified (principal); O26.893 Other specified pregnancy related conditions, third trimester; Z3A.28 28 weeks gestation of pregnancy
CPT/HCPCS: 99212

== ENCOUNTER 2021-12-04 16:51 | Emergency (ER) | payer BC ==
[~2021-12-04] VITALS: Ht 160 cm; Wt 90.7 kg
[2021-12-04] MEDS ORDERED: ONDANSETRON 4 MG (ZOFRAN) ORAL DISSOLVE TAB SL ONE (17:45)
[2021-12-04] MEDS ORDERED: LACTATED RINGERS 1,000 ML IV ONE ×2 (18:15→19:00)
[2021-12-04 18:19] LABS: BASOPHILS % (AUTO) 0 % (0-10); EOSINOPHILS % (AUTO) 0 % (0-10); HEMATOCRIT 38 % (35-52); HEMOGLOBIN 12.7 g/dL (11.5-16.0); LYMPHOCYTES # (AUTO) 0.5 10^3/uL (1.0-4.0); LYMPHOCYTES % (AUTO) 4 % (12-44); MEAN CORPUSCULAR HEMOGLOBIN 29 pg (25-34); MEAN CORPUSCULAR HGB CONC 34 g/dL (32-36); MEAN CORPUSCULAR VOLUME 88 fL (80-99); MEAN PLATELET VOLUME 8.9 fL (9.0-12.2); MONOCYTES # (AUTO) 0.6 10^3/uL (0.0-1.0); MONOCYTES % (AUTO) 5 % (0-12); NEUTROPHILS # (AUTO) 9.4 10^3/uL (1.8-7.8); NEUTROPHILS % (AUTO) 86 % (42-75); PLATELET COUNT 306 10^3/uL (130-400); WHITE BLOOD COUNT 10.9 10^3/uL (4.3-11.0)
[2021-12-04 18:20] LABS: CLARITY,URINE CLEAR; COLOR,URINE ORANGE; GLUCOSE, URINE (UA) TRACE (NEGATIVE); KETONES,URINE 3+ (NEGATIVE); LEUKOCYTE ESTERASE ,URINE TRACE (NEGATIVE); NITRITE,URINE NEGATIVE (NEGATIVE); PROTEIN,URINE 1+ (NEGATIVE)
[2021-12-04 18:31] LABS: ALBUMIN 3.6 GM/DL (3.2-4.5); POTASSIUM 3.5 MMOL/L (3.6-5.0)
[2021-12-04 18:32] LABS: CALCIUM 9.2 MG/DL (8.5-10.1)
[2021-12-04 18:33] LABS: BACTERIA,URINE MODERATE /HPF; BILIRUBIN,URINE 2+ (NEGATIVE); WBC,URINE RARE /HPF
[2021-12-04 18:34] LABS: TOTAL PROTEIN 6.9 GM/DL (6.4-8.2)
[2021-12-04 18:35] LABS: BILIRUBIN,TOTAL 0.9 MG/DL (0.1-1.0)
[2021-12-04 18:37] LABS: BAND NEUTROPHILS 2 %; BASOPHILS % (MANUAL) 0 %; CREATININE SERUM 0.64 MG/DL (0.60-1.30); EOSINOPHILS % (MANUAL) 0 %; LYMPHOCYTES % (MANUAL) 4 %; MONOCYTES % (MANUAL) 4 %; NEUTROPHILS % (MANUAL) 90 %; RBC MORPH NORMAL
[2021-12-04 18:41] LABS: MAGNESIUM 1.7 MG/DL (1.6-2.4)
--- NOTE | 2021-12-04 18:59 | ED General ---
General Chief Complaint: Cough/Cold/Flu Symptoms Stated Complaint: VOMITING / HEADACHE / BODY ACHES/ SOA Nursing Triage Note: PT AMB TO RM 6 W C/O N/V/D, BODY ACHES, AND [place] SX YESTERDAY, SOA SX BEGINNING OF . PT ADVISED TO GO TO ED FOR FURTHER EVALUATION AND TX BY [facility] OB DEPT. PT A&OX4, DENIES PAIN. Source of Information: Patient History of Present Illness Date Seen by Provider: Dec 04, 2021 Time Seen by Provider: 18:00 Initial Comments PT ARRIVES VIA POV PT IS 27 WEEKS , AND WAS INITIALLY EVALUATED IN OB DEPT AND LABOR RULED OUT, SENT TO ER FOR FURTHER EVALUATION PT STATES SHE BEGAN FEELING SICK YESTERDAY WITH NAUSEA/VOMITING, BODY ACHES, HEADACHE BEGAN HAVING DIARRHEA WHILE SHE WAS IN OB DEPT HAS VOMITED X 8-9 TODAY, AND DIARRHEA X 1-2 STATES SHE CAN'T KEEP ANYTHING DOWN NO FEVER NO ABDOMINAL PAIN IS STILL URINATING NORMALLY AND NO URINARY SYMPTOMS NO VAGINAL BLEEDING OR DISCHARGE PT IS NO PROBLEMS WITH THIS HAD ROUTINE OB VISIT LAST WEEK WITH DR. MEYERS--NEXT APPOINTMENT IS 12/13/21, PER PT NO SICK CONTACTS OR SUSPICIOUS FOODS NO HISTORY OF GI PROBLEMS OR ABDOMINAL SURGERIES OTHER THAT PRIOR NO CHRONIC ILLNESSES PT HAS NOT HAD COVID OR FLU VACCINES. PCP: NONE CAPTAIN AIRLINE PILOT: DR. MEYERS Allergies and Home Medications Allergies Coded Allergies: No Known Drug Allergies (Unverified , 08/15/16) Patient Home Medication List Home Medication List Reviewed: Yes Nitrofurantoin Monohyd/M-Cryst (Macrobid 100 mg Capsule) 100 Mg Capsule, 1 TAB PO BID Prescribed by: RONNIE ROSADO on 12/04/211909 Ondansetron (Ondansetron Odt) 4 Mg Tab.rapdis, 4 MG PO Q4H Prescribed by: RONNIE ROSADO on 12/04/211909 Vits #93/Iron Fum/FA ( Formula Tablet) 1 Each Tablet, 1 EACH PO DAILY, (Reported) Entered as Reported by: KIMBERLI MCMULLEN on 03/21/19 4946 Discontinued Medications Cephalexin (Keflex) 500 Mg Capsule, 500 MG PO QID Discontinued Reason: No Longer Taking Prescribed by: SARATH ADKINS on 06/27/19 1428 Docusate Sodium (Docusate Sodium) 100 Mg Capsule, 100 MG PO BID PRN for CONSTIPATION-1ST LINE Discontinued Reason: No Longer Taking Prescribed by: SAHRA MEYERS on 07/03/19939 Hydrocodone Bit/Acetaminophen (Lortab 5 Mg Tablet) 1 Tab Tab, 1-2 TAB PO Q6HR PRN for PAIN-MODERATE Discontinued Reason: Duplicate Order Prescribed by: SAHRA MEYERS on 07/03/19939 Ibuprofen (Ibu) 600 Mg Tablet, 600 MG PO Q6H Discontinued Reason: No Longer Taking Prescribed by: SAHRA MEYERS on 07/03/19939 Review of Systems Review of Systems Constitutional: no symptoms reported; No dizziness, No fever EENTM: no symptoms reported Respiratory: No cough; other (STATES SHE HAS BEEN "SHORT OF BREATH" THROUGHOUT , AND IS NO DIFFERENT TODAY) Cardiovascular: no symptoms reported; No chest pain Gastrointestinal: see HPI; No abdominal pain; diarrhea, nausea, vomiting Genitourinary: no symptoms reported : Yes Expected Date of Delivery: February 23, 2022 Musculoskeletal: see HPI (BODY ACHES) Skin: no symptoms reported Psychiatric/Neurological: See HPI, Headache; Denies Numbness, Denies P aresthesia, Denies Seizure, Denies Tingling, Denies Weakness Hematologic/Lymphatic: No Symptoms Reported Immunological/Allergic: no symptoms reported Past Arzctnp-Ftopfa-Tzymrw Hx Patient Social History Tobacco Use?: No Smoking Status: Never a Smoker Smokeless Tobacco Frequency: Never a User Use of E-Cig and/or Vaping dev: No Use of E-Cig and/or Vaping Jorge: Never a User Substance use?: No Alcohol Use?: No Immunizations Up To Date Influenza Vaccine Up-to-Date: No; Not Current First/Initial COVID19 Vaccinat: NONE Second COVID19 Vaccination Ruddy: NONE Third COVID19 Vaccination Date: NONE COVID19 Vaccine 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 No Pertinent Family Hx Physical Exam Vital Signs Vital Signs - First Documented 12/04/21 17:24 Temp 36.2 Pulse 121 Resp 20 B/P (MAP) 113/81 (92) Pulse Ox 98 O2 Delivery Room Air Capillary Refill : Less Than 3 Seconds Height, Weight, BMI Height: 5'3.00" Weight: 192lbs. 0.0oz. [id number]; 35.00 BMI Method:Stated General Appearance: No Apparent Distress, WD/WN, Other (DOES NOT APPEAR ILL OR TO BE IN ANY DISCOMFORT OR DISTRESS) HEENT: PERRL/EOMI, Pharynx Normal, Moist Mucous Membranes Neck: Normal Inspection Respiratory: Normal Breath Sounds, No Accessory Muscle Use, No Respiratory Distress Cardiovascular: Tachycardia (120'S) Gastrointestinal: Other (GRAVID UTERUS. 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 Norm as Tested Skin: Normal Color (PT IS ), Warm/Dry; No Rash Progress/Results/Core Measures Suspected Sepsis SIRS Temperature: Pulse: 121 Respiratory Rate: 20 Laboratory Tests 12/04/21 18:10: White Blood Count 10.9 Blood Pressure 113 /81 Mean: 92 Laboratory Tests 12/04/21 18:10: Creatinine 0.64, Platelet Count 306, Total Bilirubin 0.9 Results/Orders Lab Results Laboratory Tests Test 12/04/21 15:45 12/04/21 17:28 12/04/21 18:10 Range/Units Urine Color ORANGE Urine Clarity CLEAR Urine pH 6.0 5-9 Urine Specific [place] 1.025 H 1.016-1.022 Urine Protein 1+ H NEGATIVE Urine Glucose (UA) TRACE H NEGATIVE Urine Ketones 3+ H NEGATIVE Urine Nitrite NEGATIVE NEGATIVE Urine Bilirubin 2+ H NEGATIVE Urine Urobilinogen 4.0 < = 1.0 MG/DL Urine Leukocyte Esterase TRACE H NEGATIVE Urine RBC (Auto) NEGATIVE NEGATIVE Urine RBC NONE /HPF Urine WBC RARE /HPF Urine Squamous Epithelial Cells 2-5 /HPF Urine Crystals NONE /LPF Urine Bacteria MODERATE H /HPF Urine Casts NONE /LPF Urine Mucus SMALL H /LPF Urine Culture Indicated NO Influenza Type A (RT-PCR) Not Detected Not Detecte Influenza Type B (RT-PCR) Not Detected Not Detecte SARS-CoV-2 RNA (RT-PCR) Not Detected Not Detecte White Blood Count 10.9 4.3-11.0 10^3/uL Red Blood Count 4.32 3.80-5.11 10^6/uL Hemoglobin 12.7 11.5-16.0 g/dL Hematocrit 38 35-52 % Mean Corpuscular Volume 88 80-99 fL Mean Corpuscular Hemoglobin 29 25-34 pg Mean Corpuscular Hemoglobin Concent 34 32-36 g/dL Red Cell Distribution Width 12.6 10.0-14.5 % Platelet Count 306 130-400 10^3/uL Mean Platelet Volume 8.9 L 9.0-12.2 fL Immature Granulocyte % (Auto) 4 % Neutrophils (%) (Auto) 86 H 42-75 % Lymphocytes (%) (Auto) 4 L 12-44 % Monocytes (%) (Auto) 5 0-12 % Eosinophils (%) (Auto) 0 0-10 % Basophils (%) (Auto) 0 0-10 % Neutrophils # (Auto) 9.4 H 1.8-7.8 10^3/uL Lymphocytes # (Auto) 0.5 L 1.0-4.0 10^3/uL Monocytes # (Auto) 0.6 0.0-1.0 10^3/uL Eosinophils # (Auto) 0.0 0.0-0.3 10^3/uL Basophils # (Auto) 0.0 0.0-0.1 10^3/uL Immature Granulocyte # (Auto) 0.4 H 0.0-0.1 10^3/uL Neutrophils % (Manual) 90 % Lymphocytes % (Manual) 4 % Monocytes % (Manual) 4 % Eosinophils % (Manual) 0 % Basophils % (Manual) 0 % Band Neutrophils 2 % Blood Morphology Comment NORMAL Sodium Level 136 135-145 MMOL/L Potassium Level 3.5 L 3.6-5.0 MMOL/L Chloride Level 107 98-107 MMOL/L Carbon Dioxide Level 18 L 21-32 MMOL/L Anion Gap 11 5-14 MMOL/L Blood Urea Nitrogen 6 L 7-18 MG/DL Creatinine 0.64 0.60-1.30 MG/DL Estimat Glomerular Filtration Rate 126 BUN/Creatinine Ratio 9 Glucose Level 88 70-105 MG/DL Calcium Level 9.2 8.5-10.1 MG/DL Corrected Calcium 9.5 8.5-10.1 MG/DL Magnesium Level 1.7 1.6-2.4 MG/DL Total Bilirubin 0.9 0.1-1.0 MG/DL Aspartate Amino Transf (AST/SGOT) 20 5-34 U/L Alanine Aminotransferase (ALT/SGPT) 24 0-55 U/L Alkaline Phosphatase 94 40-136 U/L Total Protein 6.9 6.4-8.2 GM/DL Albumin 3.6 3.2-4.5 GM/DL Amylase Level 69 25-125 U/L Lipase 25 8-78 U/L My Orders Orders - RONNIE ROSADO DO Ed Iv/Invasive Line Start (12/04/21 18:09) Amylase (12/04/21 18:09) Cbc With Automated Diff (12/04/21 18:09) Comprehensive Metabolic Panel (12/04/21 18:09) Lipase (12/04/21 18:09) Magnesium (12/04/21 18:09) Ua Culture If Indicated (12/04/21 18:09) Ed Iv/Invasive Line Start (12/04/21 18:09) Lactated Ringers (Lr 1000 Ml Iv Solution (12/04/21 18:15) Manual Differential (12/04/21 18:10) Urine Culture (12/04/21 18:45) Ed Iv/Invasive Line Start (12/04/21 18:49) Lactated Ringers (Lr 1000 Ml Iv Solution (12/04/21 19:00) Medications Given in ED Current Medications Medications Dose Ordered Sig/Ricardo Route Start Time Stop Time Status Last Admin Dose Admin Lactated Ringer's 1,000 ml @ 0 mls/hr Q0M ONCE IV 12/04/21 18:15 12/04/21 18:16 DC 12/04/21 18:18 0 MLS/HR Lactated Ringer's 1,000 ml @ 0 mls/hr Q0M ONCE IV 12/04/21 19:00 12/04/21 19:01 DC 12/04/21 19:36 0 MLS/HR Ondansetron HCl 4 mg ONCE ONCE SL 12/04/21 17:45 12/04/21 17:46 DC 3/7/22 17:57 4 MG Vital Signs/I&O 12/04/21 12/04/21 17:24 21:40 Temp 36.2 Pulse 121 98 Resp 20 20 B/P (MAP) 113/81 (92) 118/74 Pulse Ox 98 98 O2 Delivery Room Air Room Air Capillary Refill : Less Than 3 Seconds Blood Pressure Mean: 92 Progress Note : Progress Note GIVEN ZOFRAN AND IV FLUIDS--NAUSEA RESOLVED PT TOLERATING ICE CHIPS HR IN 120'S AND BP 102 SYSTOLIC ON ARRIVAL HEART RATE DOWN, AND BLOOD PRESSURE UP WITH FLUIDS NO VOMITING OR DIARRHEA DURING ER STAY PT TOLERATING ICE CHIPS PRIOR TO DISMISSAL Departure Impression Primary Impression: Gastroenteritis Additional Impressions: 27 weeks gestation of Dehydration UTI (urinary tract infection) Disposition: HOME, SELF-CARE Condition: Improved Departure-Patient Inst. Referrals: SAHRA MEYERS DO (PCP/Family) Primary Care Physician Patient Instructions: Dehydration, Adult (DC), [id number], Urinary Tract Infections in Add. Discharge Instructions: CLEAR LIQUIDS, SIPS AT A TIME--WATER, BROTH, JELLO, GATORADE, POPSICLES, ICE CHIPS TOMORROW IF YOU ARE BETTER, CONTINUE CLEAR LIQUIDS AND START A BRATS DIET--BANANAS, RICE, APPLESAUCE, TOAST, SALTINES FOLLOW UP WITH DR. MEYERS IN 1-2 DAYS IF NO BETTER, RETURN TO ER IF WORSE All discharge instructions reviewed with patient and/or family. Voiced understanding. Scripts Ondansetron (Ondansetron Odt) 4 Mg Tab.rapdis 4 MG PO Q4H for Nausea/Vomiting, #10 TAB Prov: RONNIE ROSADO DO 12/04/21 Nitrofurantoin Monohyd/M-Cryst (Macrobid 100 mg Capsule) 100 Mg Capsule 1 TAB PO BID, #20 CAP Prov: RONNIE ROSADO DO 12/04/21 RONNIE ROSADO DO Dec 04, 2021 18:59
[2021-12-04] MEDS ORDERED: NITR-65 PO (19:10)
[2021-12-04] MEDS ORDERED: ONDA4TAB11 PO (19:10)
[2021-12-04 21:40] VITALS: BP 118/74
== END 2021-12-04 21:40 | disposition home or self-care (01) ==
LOC: EDUNIT# 16:51 → ER 16:52
DX: O99.612 Diseases of the digestive system complicating pregnancy, second trimester (principal); K52.9 Noninfective gastroenteritis and colitis, unspecified; O23.42 Unspecified infection of urinary tract in pregnancy, second trimester; E86.0 Dehydration; Z3A.27 27 weeks gestation of pregnancy; Z20.822 Contact with and (suspected) exposure to COVID-19
CPT/HCPCS: 36415; 80053; 81000; 82150; 83690; 83735; 85007; 85027; 87088; 87636

== ENCOUNTER 2022-02-04 02:27 | Outpatient (CLI) | payer BC ==
[~2022-02-04] VITALS: Ht 162.6 cm; Wt 92.3 kg
[~2022-02-04 02:27] MED LIST changes: +NITR-65 PO; +ONDA4TAB11 PO
[2022-02-04 02:45] VITALS: BP 115/61
[2022-02-04 02:53] LABS: BILIRUBIN,URINE NEGATIVE (NEGATIVE); CLARITY,URINE CLEAR; COLOR,URINE YELLOW; GLUCOSE, URINE (UA) NEGATIVE (NEGATIVE); KETONES,URINE NEGATIVE (NEGATIVE); LEUKOCYTE ESTERASE ,URINE 1+ (NEGATIVE); NITRITE,URINE NEGATIVE (NEGATIVE); PH,URINE 6.5 (5-9); PROTEIN,URINE NEGATIVE (NEGATIVE)
[2022-02-04 03:01] LABS: BACTERIA,URINE NEGATIVE /HPF; RENAL EPITHELIAL CELLS,URINE 0-2 /HPF
[2022-02-04] MEDS ORDERED: ACETAMINOPHEN 500 MG TAB (TYLENOL) ONE (03:29)
[2022-02-04] MEDS ORDERED: ACETAMINOPHEN 500 MG TAB (TYLENOL) PO ONE (03:30)
--- NOTE | 2022-02-04 04:16 | History & Physical-OB ---
OB - Chief Complaint & HPI Date/Time Date of Admission: Date of Admission: Date seen by a Provider: February 04, 2022 Time Seen by a Provider: 04:00 Chief Complaint/History OB-Reason for Admission/Chief: left abdominal burning Hx : 2 Hx Para: 1 Expected Date of Delivery: Mar 02, 2022 Gestational Age in Weeks: 36 Gestational Age in Days: 2 History of Labs UA unremarkable Other 26-year-old 2 para 1 at 36 weeks and 3 days gestation presents to labor and delivery with complaints of left sided abdominal burning. Reports began approximately 5 PM last night. Denies any injury or new activity. Spent the day at her mother's and otherwise had no strenuous activity. Positive movement. Denies contractions leaking of fluid or vaginal bleeding. Denies constipation or diarrhea. Has not tried anything for her pain. Has noticed that it is worse with sharp movements or quick movements. Describes as a burning sensation in the left side of her uterus but has occasional sharp stabbing pain in her left inguinal area. Denies nausea or vomiting. Denies heartburn. Denies dysuria or vaginal discharge. No other complaints of Allergies and Home Medications Allergies Coded Allergies: No Known Drug Allergies (Unverified , 08/15/16) Patient Home Medication List Home Medication List Reviewed: Yes Vits #93/Iron Fum/FA ( Formula Tablet) 1 Each Tablet, 1 EACH PO DAILY, (Reported) Entered as Reported by: KIMBERLI MCMULLEN on 03/21/19 9439 Last Action: Reviewed Discontinued Medications Nitrofurantoin Monohyd/M-Cryst (Macrobid 100 mg Capsule) 100 Mg Capsule, 1 TAB PO BID Discontinued Reason: No Longer Taking Prescribed by: RONNIE ROSADO on 12/04/211909 Last Action: Discontinued Ondansetron (Ondansetron Odt) 4 Mg Tab.rapdis, 4 MG PO Q4H Discontinued Reason: No Longer Taking Prescribed by: RONNIE ROSADO on 12/04/211909 Last Action: Discontinued OB - History Hx of Present Care: Yes Ultrasounds: Normal mid trimester US Obstetrical Complications: None Medical Complications: None Information Induced Hypertension: No Maternal Gestational Diabetes: No Hemorrhage: No Obstetrical History Hx : 2 Hx Para: 1 Hx Total # of Abortions (Spona: 0 Delivery History Hx Section: Yes Hx Blood Disorders: No Patient Past Medical History n/a Social History/Family History Alcohol Use: Denies Use Recreational Drug Use: No Immunizations First/Initial COVID19 Vaccine: NONE Second COVID19 Vaccination: NONE Third COVID19 Vaccination Date: NONE OB - Admission Exam Physical Exam Vitals: Vital Signs HEENT: NCAT Lungs: Clear Abdomen: Gravid (no fundal tenderness. Describes burning along left side of fundus, nontender on exam. no CVA tenderness. Slight tenderness with palpation in left inguinal area without LN. otherwise, abdominal exam benign) Extremities: Normal Heart Rate: 130's Accelerations: Accelerations Present Decelerations: No Decelerations Short Term Variability: Present Painting Supervisor Variability: Average (6-25) Contractions on Admission: None Labs Laboratory Tests Test 02/04/22 02:35 Range/Units Urine Color YELLOW Urine Clarity CLEAR Urine pH 6.5 5-9 Urine Specific [place] 1.010 L 1.016-1.022 Urine Protein NEGATIVE NEGATIVE Urine Glucose (UA) NEGATIVE NEGATIVE Urine Ketones NEGATIVE NEGATIVE Urine Nitrite NEGATIVE NEGATIVE Urine Bilirubin NEGATIVE NEGATIVE Urine Urobilinogen 0.2 < = 1.0 MG/DL Urine Leukocyte Esterase 1+ H NEGATIVE Urine RBC (Auto) NEGATIVE NEGATIVE Urine RBC NONE /HPF Urine WBC 2-5 /HPF Urine Squamous Epithelial Cells 2-5 /HPF Urine Renal Epithelial Cells 0-2 /HPF Urine Crystals NONE /LPF Urine Bacteria NEGATIVE /HPF Urine Casts NONE /LPF Urine Mucus NEGATIVE /LPF Urine Culture Indicated NO OB - Assessment/Plan/Diagnosis Assessment Assessment: other (round ligament pain) Admission Dx Round ligament pain 36.3 weeks gestation Admission Status: Other Plan Plan: Expectant Management Other Plan dismissal to home with reassurance and precautions routine follow-up in clinic discussed belt, tylenol, hydration Discharge Diagnosis Diagnosis: round ligament pain at 36.3 weeks gestation Copy Copies To 1: SAHRA MEYERS KARI E MD February 04, 2022 04:16
== END 2022-02-04 04:20 | disposition home or self-care (01) ==
LOC: WSo 02:27 → LDRP 02:28 → WSo 04:20
PROVIDERS: ATTEND Obstetrics & Gynecology
DX: O26.893 Other specified pregnancy related conditions, third trimester (principal); R10.9 Unspecified abdominal pain; R11.0 Nausea; Z3A.36 36 weeks gestation of pregnancy
CPT/HCPCS: 81000; G0463; 99212

== ENCOUNTER 2022-02-16 06:23 | Outpatient (CLI) | payer BC ==
[~2022-02-16] VITALS: Ht 160 cm; Wt 91.4 kg
== END 2022-02-19 12:24 | disposition home or self-care (01) ==
LOC: PREOP 06:23
PROVIDERS: ATTEND Obstetrics & Gynecology
DX: Z01.818 Encounter for other preprocedural examination (principal)

== ENCOUNTER 2022-02-23 05:57 | Inpatient (IN) | payer BC ==
[2022-02-23] VITALS (11 sets, daily range): BP systolic 93–120; BP diastolic 51–97
[~2022-02-23] VITALS: Ht 160 cm; Wt 92.9 kg
[2022-02-23] MEDS: LACTATED RINGERS 1,000 ML IV PRN ×2 (06:12→08:15)
[2022-02-23 06:13] LABS: BASOPHILS % (AUTO) 0 % (0-10); EOSINOPHILS # (AUTO) 0.1 10^3/uL (0.0-0.3); EOSINOPHILS % (AUTO) 1 % (0-10); HEMATOCRIT 33 % (35-52); HEMOGLOBIN 10.8 g/dL (11.5-16.0); LYMPHOCYTES # (AUTO) 1.9 10^3/uL (1.0-4.0); LYMPHOCYTES % (AUTO) 24 % (12-44); MEAN CORPUSCULAR HEMOGLOBIN 26 pg (25-34); MEAN CORPUSCULAR HGB CONC 32 g/dL (32-36); MEAN CORPUSCULAR VOLUME 82 fL (80-99); MONOCYTES # (AUTO) 0.7 10^3/uL (0.0-1.0); MONOCYTES % (AUTO) 9 % (0-12); NEUTROPHILS % (AUTO) 64 % (42-75); PLATELET COUNT 321 10^3/uL (130-400); WHITE BLOOD COUNT 7.9 10^3/uL (4.3-11.0)
[2022-02-23] MEDS ORDERED: METOCLOPRAMIDE INJ 10 MG/2 ML (REGLAN) IV ONE (06:15)
[2022-02-23] MEDS ORDERED: CATHETER FLUSH 10 ML SYR IV PRN (06:15)
[2022-02-23] MEDS ORDERED: CITRIC ACID/SOB CIT (BICITRA) 30 ML UDC PO ONE (06:15)
[2022-02-23] MEDS ORDERED: LACTATED RINGERS 1,000 ML IV PRN (06:15)
[2022-02-23] MEDS ORDERED: ceFAZolin 2 GM IV Premixed 50 ML IV ONE (06:15)
[2022-02-23] MEDS ORDERED: FAMOTIDINE 20MG/2ML IV (PEPCID) IV ONE (06:15)
[2022-02-23] MEDS ORDERED: fentaNYL INJ 100 MCG/2 ML AMP ONE (07:03)
[2022-02-23] MEDS ORDERED: OXYTOCIN PRE-MIX DRIP 1,000 ML IV ONE (07:04)
[2022-02-23] MEDS ORDERED: BUPIVACAINE 0.5% 30 ML (SENSORCAINE) VIAL ONE (07:04)
--- NOTE | 2022-02-23 07:20 | History & Physical-OB ---
OB - Chief Complaint & HPI Date/Time Date of Admission: Date of Admission: February 23, 2022 at 05:57 Date seen by a Provider: February 23, 2022 Time Seen by a Provider: 07:10 Chief Complaint/History OB-Reason for Admission/Chief: Section Hx : 2 Hx Para: 1 Expected Date of Delivery: Mar 02, 2022 Gestational Age in Weeks: 39 Gestational Age in Days: 0 Indication for : desires repeat Admission Nurse Assessment Rev: Yes History of Labs O pos Antibody neg RI RPR NR HBsAg NR HIV NR GC neg GBS neg Allergies and Home Medications Allergies Coded Allergies: No Known Drug Allergies (Unverified , 02/19/22) Patient Home Medication List Home Medication List Reviewed: Yes Vits #93/Iron Fum/FA ( Formula Tablet) 1 Each Tablet, 1 EACH PO DAILY, (Reported) Entered as Reported by: KIMBERLI MCMULLEN on 03/21/19 0222 OB - History Hx of Present Care: Yes Ultrasounds: Normal mid trimester US Obstetrical Complications: None Medical Complications: None Delivery History Hx Section: Yes Hx Blood Disorders: No Patient Past Medical History n/a Social History/Family History 2nd Hand Smoke Exposure: No Immunizations Influenza Vaccine Up-to-Date: No; Not Current First/Initial COVID19 Vaccine: NONE Second COVID19 Vaccination: NONE Third COVID19 Vaccination Date: NONE Hepatitis A: Yes Hepatitis B: Yes Tetanus Booster (TDap): Unknown OB - Admission Exam Physical Exam Vitals: Vital Signs 02/23/22 06:26 Temp 35.9 Pulse 103 Resp 18 Pulse Ox 98 O2 Delivery Room Air HEENT: NCAT Heart: Rhythm Normal Lungs: Clear Abdomen: Gravid Extremities: Normal Reflexes: Normal Heart Rate: 130's Accelerations: Accelerations Present Decelerations: No Decelerations Short Term Variability: Present Burlap Roll Coverer Variability: Average (6-25) Contractions on Admission: 6-10 Minutes Apart Intensity: Mild Labs Laboratory Tests Test 02/23/22 06:09 Range/Units White Blood Count 7.9 4.3-11.0 10^3/uL Red Blood Count 4.10 3.80-5.11 10^6/uL Hemoglobin 10.8 L 11.5-16.0 g/dL Hematocrit 33 L 35-52 % Mean Corpuscular Volume 82 80-99 fL Mean Corpuscular Hemoglobin 26 25-34 pg Mean Corpuscular Hemoglobin Concent 32 32-36 g/dL Red Cell Distribution Width 14.8 H 10.0-14.5 % Platelet Count 321 130-400 10^3/uL Mean Platelet Volume 9.0 9.0-12.2 fL Immature Granulocyte % (Auto) 2 % Neutrophils (%) (Auto) 64 42-75 % Lymphocytes (%) (Auto) 24 12-44 % Monocytes (%) (Auto) 9 0-12 % Eosinophils (%) (Auto) 1 0-10 % Basophils (%) (Auto) 0 0-10 % Neutrophils # (Auto) 5.0 1.8-7.8 10^3/uL Lymphocytes # (Auto) 1.9 1.0-4.0 10^3/uL Monocytes # (Auto) 0.7 0.0-1.0 10^3/uL Eosinophils # (Auto) 0.1 0.0-0.3 10^3/uL Basophils # (Auto) 0.0 0.0-0.1 10^3/uL Immature Granulocyte # (Auto) 0.1 0.0-0.1 10^3/uL OB - Assessment/Plan/Diagnosis Assessment Assessment: section Admission Dx 26 yo @ 39 weeks Previous GBS neg Admission Status: Inpatient Order (span 2 midnights) Reason for Inpatient Admission: Repeat Plan Plan: Section SAHRA MEYERS DO February 23, 2022 07:20
--- NOTE | 2022-02-23 07:25 | Discharge Inst-Women's Service ---
Discharge Inst-Women's Serv Depart Medication/Instructions New, Converted or Re-Newed RX: Transmitted to Pharmacy Final Diagnosis POD 2 RLTCS Problems Reviewed?: Yes Consults/Follow Up Additional Follow Up: Yes Orders/Referrals Dr. Waldron in 7-10 days and in 6 weeks Activity Activity: Activity as Tolerated NO SMOKING: NO SMOKING Nothing Inside Vagina: No Douching, No [place], No Tampons Diet Discharge Diet: No Restrictions Symptoms to Report to : Bleeding Excessive, Pain Increased, Fever Over 101 Degrees F, Vaginal Bleeding Increase, Questions/Concerns For Any Problems or Questions: Contact Your Physician Skin/Wound Care Infection Signs and Symptoms: Increased Redness, Foul Odor of Wound, Increased Drainage, Skin Itchy or Has a Rash, Increased Swelling, Temperature Above 101 F Operative Area Clean and Dry: Keep Incision Clean/Dry Stitches/Yvonne/Dermabond: Dermabond, Care of Stitches Bathing Instructions: SAHRA Saini DO February 23, 2022 07:25
[2022-02-23] MEDS ORDERED: ACHD5005 PO (07:26)
[2022-02-23] MEDS ORDERED: DOCU100C37 PO (07:26)
[2022-02-23] MEDS ORDERED: IBUP-844 PO (07:26)
[2022-02-23] MEDS ORDERED: PHENYLEPHRINE 100 MCG/ML 10 ML (ANESTHESIA) SYR ONE (07:29)
[2022-02-23] MEDS ORDERED: MEASLES,MUMPS,RUBELLA 1 EA INJ SC SCH (07:30)
[2022-02-23] MEDS ORDERED: NALOXONE 0.4 MG/ML 1 ML (NARCAN) VIAL IV PRN (07:30)
[2022-02-23] MEDS ORDERED: TETANUS,DIPTH,PERTUSS P/F (BOOSTRIX) 0.5 ML VIAL IM SCH (07:30)
[2022-02-23] MEDS ORDERED: ONDANSETRON 4 MG/2 ML (SDV) Z0FRAN IVP PRN (07:30)
[2022-02-23] MEDS ORDERED: KETOROLAC 30 MG/ML VIAL ONE (07:42)
[2022-02-23] MEDS: KETOROLAC 30 MG/ML VIAL IV SCH ×3 (08:58→21:56)
[2022-02-23] MEDS: OXYTOCIN PRE-MIX DRIP 500 ML IV SCH ×2 (08:58→11:30)
[2022-02-23] MEDS: DOCUSATE SODIUM 100 MG (COLACE) CAP PO SCH ×2 (09:58→21:56)
[2022-02-23] MEDS: METOCLOPRAMIDE 10 MG (REGLAN) TAB PO SCH ×3 (11:48→23:29)
[2022-02-23] MEDS: HYDROcodone/APAP 5 MG/325 MG (LORTAB) TAB PO PRN ×2 (13:47→20:45)
--- NOTE | 2022-02-23 13:54 | OPERATIVE REPORT ---
DATE OF SERVICE: 02/23/2022 PREOPERATIVE DIAGNOSES: 1. A 26-year-old G2, P1 at 39 weeks gestation. 2. Previous section. POSTOPERATIVE DIAGNOSES: 1. A 26-year-old G2, P1 at 39 weeks gestation. 2. Previous section. PROCEDURE: Repeat low transverse section. SURGEON: Lino Meyers DO ANESTHESIA: Spinal. ESTIMATED BLOOD LOSS: 500 mL. URINE OUTPUT: 75 mL clear at the end of the procedure. FLUIDS: 1600 mL lactated Ringer's solution. FINDINGS: A live female infant weighing 7 pounds 11 ounces, Apgars of 9 and 9. Grossly normal appearing uterus, bilateral fallopian tubes and ovaries. SPECIMEN SENT: None. INDICATIONS FOR PROCEDURE: This 26-year-old female is a patient who had sought care in my office. Her care was uncomplicated with the exception of repeat , which she opted to proceed with repeat versus after counseling. Risks of the procedure had been discussed with the patient in detail including risk of bleeding, infection, damaging surrounding structures including, but not limited to bowel, bladder, ureter, kidneys, possible need for reoperation, postoperative complications that may occur, recovery timeframe, risk from anesthesia and even . After everything was discussed with the patient in detail, consent was obtained in the preoperative area, the patient was taken to the operating room. OPERATIVE REPORT IN DETAIL: Once in the operating room, spinal analgesia was found to be adequate. She was placed in supine position with leftward tilt, prepped and draped in normal sterile fashion. Timeout was performed. Anesthesia was tested. I then make a Pfannenstiel skin incision through the previously existing scar using a knife and carried down to the underlying fascia using Bovie cautery. The fascial incision extended laterally using Bovie cautery. The superior aspect of fascial incision was then grasped with Erickson clamps, tented up and dissected off the underlying rectus muscles. The inferior aspect of fascial incision was then grasped with Erickson clamps, tented up and dissected off the underlying rectus muscles. Rectus muscle dissected down the midline using sharp dissection, which exposed the peritoneum, which I entered bluntly and extended using blunt traction. An Lloyd ring retractor was placed in the peritoneal incision, which offers excellent lateral sidewall retraction. I identified the lower uterine segment, which was found to be thinned out. I make a low transverse incision to the vesicouterine peritoneum and bluntly dissected off the lower uterine segment, creating a bladder flap. I then proceeded with my myotomy until membranes were visualized, at which point I extended the uterine incision laterally and superiorly using bandage scissors. Amniotomy was then performed using Allis clamp. Clear fluid was noted. was found in vertex presentation. With gentle fundal pressure, the infant's head is elevated up to the incision were delivered through the incision. The nares and oropharynx were bulb suctioned. Anterior and posterior shoulders were delivered. The was then brought out to the operative field where the cord was doubly clamped and cut and was handed off to waiting nurses in attendance. Cord blood was collected, 3-vessel cord with intact, placenta was delivered spontaneously thereafter. IV Pitocin was initiated to facilitate uterine contraction. Uterine fundus confirmed by manual massage. The uterus was then exteriorized and cleared of all endometrial clots and debris. I then proceeded with closing the uterine incision using 0 Vicryl suture in a running locked fashion. A second layer of imbricating 0 Monocryl was placed. Excellent hemostasis was noted after doing this. I then placed the uterus back in the pelvis and copiously irrigated the pelvis using normal saline. Once again there was no active bleeding noted from any of my dissection planes. I placed Interceed antiadhesive over my low transverse incision. I then proceeded with removing the Lloyd ring retractor and closing the peritoneum using 3-0 Vicryl suture in a running fashion. The rectus muscle reapproximated using 3-0 Vicryl suture in interrupted fashion. The fascia was reapproximated using 0 Vicryl suture in a running fashion. The subcutaneous tissue was reapproximated using 3-0 plain in an interrupted subcutaneous stitch and skin reapproximated using 4-0 Monocryl in a running subcuticular. Dermabond was applied to incision and sterile dressing was adhesed with white tape. The patient tolerated the procedure well and sent to recovery area in stable condition. Lap and sponge counts were correct at the end of procedure. Instrument counts were correct as well. Two grams of Ancef given preoperatively for infection prophylaxis. Job ID: [id number] DocumentID: [id number] Dictated Date: 02/23/2022 08:11:14 Pharmacy Teacher Date: 02/23/2022 13:54:19 Dictated By: LINO MEYERS, DO
[2022-02-23] MEDS ORDERED: D5 LR IV SOLUTION 1,000 ML IV ONE ×2 (14:17→14:30)
[2022-02-23] MEDS: CATHETER FLUSH 10 ML SYR IV SCH ×2 (15:50→21:57)
[2022-02-24] MEDS: KETOROLAC 30 MG/ML VIAL IV SCH (04:10)
[2022-02-24] MEDS: HYDROcodone/APAP 5 MG/325 MG (LORTAB) TAB PO PRN ×2 (04:10→12:38)
[2022-02-24 04:17] VITALS: BP 90/61
[2022-02-24 06:04] LABS: BASOPHILS % (AUTO) 0 % (0-10); EOSINOPHILS # (AUTO) 0.1 10^3/uL (0.0-0.3); EOSINOPHILS % (AUTO) 1 % (0-10); HEMATOCRIT 28 % (35-52); HEMOGLOBIN 8.9 g/dL (11.5-16.0); LYMPHOCYTES # (AUTO) 1.7 10^3/uL (1.0-4.0); LYMPHOCYTES % (AUTO) 14 % (12-44); MEAN CORPUSCULAR HEMOGLOBIN 26 pg (25-34); MEAN CORPUSCULAR HGB CONC 32 g/dL (32-36); MEAN CORPUSCULAR VOLUME 83 fL (80-99); MEAN PLATELET VOLUME 9.5 fL (9.0-12.2); MONOCYTES # (AUTO) 0.8 10^3/uL (0.0-1.0); MONOCYTES % (AUTO) 7 % (0-12); NEUTROPHILS # (AUTO) 9.2 10^3/uL (1.8-7.8); NEUTROPHILS % (AUTO) 77 % (42-75); PLATELET COUNT 266 10^3/uL (130-400); WHITE BLOOD COUNT 11.9 10^3/uL (4.3-11.0)
[2022-02-24] MEDS: METOCLOPRAMIDE 10 MG (REGLAN) TAB PO SCH ×3 (06:15→18:13)
[2022-02-24] MEDS: CATHETER FLUSH 10 ML SYR IV SCH ×2 (06:15→21:33)
--- NOTE | 2022-02-24 07:54 | Postpartum Progress Note ---
Note Note Day # 1 Subjective: Patient is without complaints. Ambulating, voiding. Tolerating a regular diet without nausea or vomiting. Normal lochia. Pain is well controlled with oral pain medications. Objective: Physical Exam: General - Alert and oriented, no apparent distress Abdomen - Soft, appropriately tender to palpation, non-distended, fundus firm at umbilicus Extremities - no edema, negative Corey's bilaterally Incision- c/d/i Assessment: POD 1 RLTCS Acute blood loss anemia Plan: Routine care. Encourage breast feeding. Encourage ambulation. Ferrous sulfate supplementation. Plan for discharge tomorrow Vitals - Labs Vital Signs - I&O Vital Signs Date Time Temp Pulse Resp B/P (MAP) Pulse Ox O2 Delivery O2 Flow Rate FiO2 02/24/22 04:17 36.3 66 18 90/61 (71) 98 Room Air 02/23/22 23:38 36.2 75 18 94/53 (67) 97 Room Air 02/23/22 20:49 36.7 79 18 99/54 (69) 97 Room Air 02/23/22 16:00 36.6 86 18 101/62 (75) 98 Room Air 02/23/22 11:54 36.5 60 16 101/60 (74) 99 Room Air 02/23/22 10:00 35.8 70 16 120/80 (93) 99 Room Air 02/23/22 09:55 36.5 78 16 103/64 (77) 98 Room Air 02/23/22 09:15 Room Air 02/23/22 09:15 36.4 16 108/97 (101) 100 Room Air 02/23/22 09:00 Room Air 02/23/22 09:00 36.4 16 105/57 (73) 100 Room Air 02/23/22 08:45 36.4 16 93/51 (65) 99 Room Air 02/23/22 08:45 Room Air 02/23/22 08:23 Room Air 02/23/22 08:23 36.7 16 108/56 (73) 99 Room Air I & O 02/24/22 07:00 Intake Total 2650 ml Output Total 1725 ml Balance 925 ml Labs Laboratory Tests 02/24/22 05:19: White Blood Count 11.9H, Red Blood Count 3.39L, Hemoglobin 8.9L, Hematocrit 28L, Mean Corpuscular Volume 83, Mean Corpuscular Hemoglobin 26, Mean Corpuscular Hemoglobin Concent 32, Red Cell Distribution Width 15.2H, Platelet Count 266, Mean Platelet Volume 9.5, Immature Granulocyte % (Auto) 1, Neutrophils (%) (Auto) 77H, Lymphocytes (%) (Auto) 14, Monocytes (%) (Auto) 7, Eosinophils (%) (Auto) 1, Basophils (%) (Auto) 0, Neutrophils # (Auto) 9.2H, Lymphocytes # (Auto) 1.7, Monocytes # (Auto) 0.8, Eosinophils # (Auto) 0.1, Basophils # (Auto) 0.0, Immature Granulocyte # (Auto) 0.1 Microbiology 02/23/22 MRSA Screen - Final, Complete MRSA not isolated SAHRA MEYERS DO February 24, 2022 07:54
[2022-02-24 08:14] VITALS: BP 98/55
[2022-02-24] MEDS ORDERED: IBUPROFEN 600 MG (MOTRIN) TAB PO ONE (08:26)
[2022-02-24] MEDS: DOCUSATE SODIUM 100 MG (COLACE) CAP PO SCH ×2 (10:16→21:34)
[2022-02-24] MEDS: IBUPROFEN 600 MG (MOTRIN) TAB PO SCH ×3 (10:16→21:34)
[2022-02-24 12:35] VITALS: BP 94/56
--- NOTE | 2022-02-24 15:06 | Anesthesia-Regional Post-Op ---
Regional Patient Condition Mental Status: Alert, Oriented x3 Circulation: Same as Pre-Op Headache: Absent Sensation: Full Recovery Motor Block: Absent Post Op Complications Complications None Follow Up Care/Instructions Patient Instructions None needed. Anesthesia/Patient Condition Patient is doing well, no complaints, stable vital signs, no apparent adverse anesthesia problems. No complications reported per nursing. CASEY THOMAS CRNA February 24, 2022 15:06
[2022-02-24 15:47] VITALS: BP 94/54
[2022-02-24 21:40] VITALS: BP 123/76
[2022-02-25] MEDS: METOCLOPRAMIDE 10 MG (REGLAN) TAB PO SCH ×3 (00:40→11:14)
[2022-02-25] MEDS: HYDROcodone/APAP 5 MG/325 MG (LORTAB) TAB PO PRN ×2 (00:40→06:44)
[2022-02-25 00:47] VITALS: BP 102/59
[2022-02-25 04:00] VITALS: BP 95/58
[2022-02-25] MEDS: IBUPROFEN 600 MG (MOTRIN) TAB PO SCH ×2 (04:03→11:14)
[2022-02-25] MEDS: CATHETER FLUSH 10 ML SYR IV SCH (05:23)
--- NOTE | 2022-02-25 10:23 | Postpartum Progress Note ---
Note Note Day # 2 Subjective: Patient is without complaints. Ambulating, voiding. Tolerating a regular diet without nausea or vomiting. Normal lochia. Pain is well controlled with oral pain medications. Objective: Physical Exam: General - Alert and oriented, no apparent distress Abdomen - Soft, appropriately tender to palpation, non-distended, fundus firm at umbilicus Extremities - no edema, negative Corey's bilaterally Incision- c/d/i Assessment: POD 2 RLTCS Acute blood loss anemia Plan: Routine care. Encourage breast feeding. Encourage ambulation. Ferrous sulfate supplementation. Plan for discharge today Vitals - Labs Vital Signs - I&O Vital Signs Date Time Temp Pulse Resp B/P (MAP) Pulse Ox O2 Delivery O2 Flow Rate FiO2 02/25/22 04:00 36.4 67 18 95/58 (70) 97 Room Air 02/25/22 00:47 36.5 73 18 102/59 (73) 97 Room Air 02/24/22 21:40 36.6 74 18 123/76 (92) 98 Room Air 02/24/22 15:47 36.4 74 18 94/54 (67) 97 Room Air 02/24/22 12:35 36.3 69 18 94/56 (69) 98 Room Air Labs Microbiology 02/23/22 MRSA Screen - Final, Complete MRSA not isolated SAHRA MEYERS DO February 25, 2022 10:23
[2022-02-25 11:12] VITALS: BP 103/60
[2022-02-25] MEDS: DOCUSATE SODIUM 100 MG (COLACE) CAP PO SCH (11:13)
== END 2022-02-25 13:00 | disposition home or self-care (01) | DRG 787 ==
LOC: LDRP 05:57
PROVIDERS: ADMIT Obstetrics & Gynecology; ATTEND Obstetrics & Gynecology
PROC: 10D00Z1 Extraction of Products of Conception, Low, Open Approach (ICD-10-PCS; principal; 2022-02-23 07:13)
DX: O34.211 Maternal care for low transverse scar from previous cesarean delivery (principal); D62 Acute posthemorrhagic anemia; Z3A.39 39 weeks gestation of pregnancy; Z37.0 Single live birth; O90.81 Anemia of the puerperium
CPT/HCPCS: 36415; 85025; 86850; 86900; 86901; 87081; 90715; 94664

== ENCOUNTER 2023-08-07 15:43 | Emergency (ER) | payer OTHER, BC ==
[~2023-08-07] VITALS: Ht 162.4 cm; Wt 95.2 kg
--- NOTE | 2023-08-07 16:07 | ED General ---
General Chief Complaint: Exposure Stated Complaint: INHALED FUMES FROM POISON BY ACCIDENT Source of Information: Patient Exam Limitations: No Limitations History of Present Illness Date Seen by Provider: Aug 07, 2023 Time Seen by Provider: 15:45 Initial Comments 27-year-old female with no pertinent past medical history coming in after she accidentally inhaled the fumes of HCl. She was at work, a coworker took a drink of a bottle of what she thought was water, it burned her mouth, so the patient grabbed and smelled it. They later learned that it was roughly 30% HCl. She wanted to be checked out to make sure she was okay because she is breast- feeding. She confirms that she did not touch or drink any of this. She did not inhale it in any large quantities for any extended period of time. She is asymptomatic at this time. Allergies and Home Medications Allergies Coded Allergies: No Known Drug Allergies (Unverified , 02/19/22) Patient Home Medication List Home Medication List Reviewed: Yes Docusate Sodium (Docusate Sodium) 100 Mg Capsule, 100 MG PO BID PRN for CONSTIPATION-1ST LINE Prescribed by: SAHRA MEYERS on 02/23/22 0726 Hydrocodone Bit/Acetaminophen (HYDROcodone/APAP 5 MG/325 MG TAB) 1 Tab Tab, 1-2 EA PO Q6HR PRN for PAIN-MODERATE (5-7) Prescribed by: SAHRA MEYERS on 02/23/22 0727 Ibuprofen (Ibu) 600 Mg Tablet, 600 MG PO Q6HR Prescribed by: SAHRA MEYERS on 02/23/22 0726 Vits #93/Iron Fum/FA ( Formula Tablet) 1 Each Tablet, 1 EACH PO DAILY, (Reported) Entered as Reported by: KIMBERLI MCMULLEN on 03/21/19 [id number] Review of Systems Review of Systems Constitutional: No fever Respiratory: see HPI Cardiovascular: no symptoms reported Gastrointestinal: no symptoms reported Past Xoqfukc-Irvwjp-Lkszsh Hx Patient Social History Tobacco Use?: No Substance use?: No Alcohol Use?: No Immunizations Up To Date Tetanus Booster (TDap): Unknown First/Initial COVID19 Vaccinat: NONE Second COVID19 Vaccination Ruddy: NONE Third COVID19 Vaccination Date: NONE Seasonal Allergies Seasonal Allergies: No Past Medical History Surgery/Hospitalization HX: N/A Surgeries: Yes ( X 1) Section Respiratory: No Currently Using CPAP: No Currently Using BIPAP: No Cardiac: No Neurological: No Reproductive Disorders: No Sexually Transmitted Disease: No HIV/AIDS: No Genitourinary: No Gastrointestinal: No Musculoskeletal: No Endocrine: No HEENT: No Cancer: No Psychosocial: No Integumentary: No Blood Disorders: No Family Medical History Patient reports no known family medical history. No Pertinent Family Hx Physical Exam Vital Signs Capillary Refill : Height, Weight, BMI Height: 5'3.00" Weight: 192lbs. 0.0oz. 87.515655im; 36.28 BMI Method:Stated General Appearance: No Apparent Distress, WD/WN Eyes: Bilateral Eye Normal Inspection HEENT: PERRL/EOMI, Normal ENT Inspection, Pharynx Normal Neck: Full Range of Motion, Normal Inspection, Non Tender, Supple Respiratory: Chest Non Tender, Lungs Clear, Normal Breath Sounds, No Accessory Muscle Use, No Respiratory Distress Cardiovascular: Regular Rate, Rhythm, No Edema, Normal Peripheral Pulses Gastrointestinal: Normal Bowel Sounds, Non Tender, Soft Progress/Results/Core Measures Suspected Sepsis SIRS Temperature: Pulse: Respiratory Rate: Blood Pressure / Mean: Results/Orders Vital Signs/I&O Capillary Refill : Progress Note : Progress Note 27-year-old female with above history coming in after inhaling HCl for very short period of time. ABCs were intact and vitals were stable on presentation. Physical exam reassuring with no acute abnormalities particularly in her nose, mouth, and lungs are clear. We contacted poison control, and there is nothing to do for this. Patient is at her baseline and I believe stable for discharge with outpatient follow-up. Departure Impression Primary Impression: Inhalation of cleaning agent Qualified Codes: T59.891A - Toxic effect of other specified gases, fumes and vapors, accidental (unintentional), initial encounter Disposition: HOME, SELF-CARE Condition: Stable Departure-Patient Inst. Decision time for Depature: 16:10 Referrals: SAHRA MEYERS DO (PCP/Family) Primary Care Physician Add. Discharge Instructions: We contacted poison control, and fortunately there is nothing to do for this. You may have some mild irritation in your nose or throat, but breast-feeding is safe. You can take ibuprofen or Tylenol as needed for discomfort. This will get better shortly. VENITA MARIN MD Aug 07, 2023 16:07
[2023-08-07 16:22] VITALS: BP 105/79
== END 2023-08-07 16:26 | disposition home or self-care (01) ==
LOC: EDUNIT# 15:43 → ER 15:45
DX: T59.891A Toxic effect of other specified gases, fumes and vapors, accidental (unintentional), initial encounter (principal)
CPT/HCPCS: 99281